=== PATIENT | female | born 1935 | race Caucasian/White ===

== ENCOUNTER 2017-11-23 10:37 | Inpatient (IN) | payer OTHER, BC ==
[2017-11-23] MEDS ORDERED: NA CHLORIDE 0.9% 1,000 ML ONE ×2 (11:48→16:27)
[2017-11-23] MEDS ORDERED: ACETAMINOPHEN 160 MG/5 ML UCUP ONE (11:48)
[2017-11-23] MEDS ORDERED: CEFEPIME 1 GM/100 ML BAG IV ONE (11:48)
[2017-11-23] MEDS ORDERED: ONDANSETRON 4 MG/2 ML VIAL ONE (11:51)
[2017-11-23] MEDS ORDERED: FENTANYL CITR 100 MCG/2 ML ONE (11:51)
[2017-11-23] MEDS ORDERED: VANCOMYCIN/NS 1 gm 1 GM/250 ML BAG IV ONE (12:00)
--- NOTE | 2017-11-23 12:40 | RAD REPORT ---
EXAM DESCRIPTION: RAD - Chest Single View - 11/23/2017 12:21 pm CLINICAL HISTORY: Abdominal pain, shortness of breath COMPARISON: September 01 TECHNIQUE: AP portable chest image was obtained in supine positioning at 1205 hours . FINDINGS: Interstitial edema or infiltrate changes are present superimposed on chronic interstitial lung pattern. Dense opacification in the mid and lower right lung field is the known loculated pleura l fluid and pleural calcification in the posterior right chest. Heart size is similar to prior study. Vasculature is mildly prominent. Mild CHF/ volume overload is suspected. This is accentuated due to supine positioning. Pacemaker remains in place. No pneumothorax or large pleural effusion. Right cost ophrenic angle blunting is probably part of the pleural scarring process rather than any significant effusion. No gross bony abnormality seen. No acute aortic findings suspected. IMPRESSION: Suspected mild CHF/volume overload accentuated by supine positioning. Chronic pleural calcifications of the lower right lung field noted.
[2017-11-23 12:56] LABS: Absolute Lymphocytes (CBC) 1.6 K/uL (0.7-4.9); Absolute Neutrophil 14.4 K/uL (1.8-8.0); Basophils % 0.3 % (0-1.3); Eosinophils % 0.2 % (0-4.4); Hematocrit 42.8 % (36.0-45.0); Lymphocytes % 9.1 % (15.3-44.8); MCH 27.5 pg (27.0-35.0); MCV 89.6 fL (80-100); MPV 8.4 fL (7.6-11.3); RBC Red Blood Cell Count 4.77 M/uL (3.86-4.86)
[2017-11-23 12:59] LABS: Protime INR 1.14
[2017-11-23 13:12] LABS: Bicarbonate 32 mEq/L (21-31); Glucose Level 141 mg/dL (65-120); Potassium 4.1 mEq/L (3.6-5.0); Sodium Level 135 mEq/L (135-145)
[2017-11-23 13:14] LABS: CKMB Creatine Kinase MB 1.5 ng/ml (0.3-4.0)
[2017-11-23 13:18] LABS: ALT/SGPT 14 IU/L (10-60); AST/SGOT 20 IU/L (10-42); Albumin 3.9 g/dL (3.2-5.5); Alkaline Phosphatase 61 IU/L (42-121); BUN Blood Urea Nitrogen 31 mg/dL (6-20); Bilirubin Direct 0.2 mg/dL (0-0.2); Bilirubin Total 0.8 mg/dL (0.3-1.2); Creatine Phosphokinase 28 IU/L (22-269); Protein, Total 7.8 g/dL (6.0-8.3)
--- NOTE | 2017-11-23 13:31 | ER ---
Nurse's Notes [facility] Name: Pao Evans Age: 82 yrs Sex: Female : 1935 Arrival Date: 11/23/2017 Time: 10:48 Bed 3 Private MD: Diagnosis: Fever, unspecified;Abdominal tenderness;Cystitis;Elevated white blood cell count;Vomiting;Pneumonia due to other specified bacteria-right lower posterior lobe;Hypotension Presentation: 11/23 10:48 Presenting complaint: EMS states: vomiting since today reported by daughter. EMS aa5 reports pt vomited once upon scene arrival. EMS also reports daughter reported drainage to PEG tube and reported pt is currently being treated for UTI. Yordan noted. 10:48 Transition of care: patient was not received from another setting of care. Onset of aa5 symptoms was November 23, 2017. Care prior to arrival: Medication(s) given: Phenergan, 12.5 mg. 10:48 Method Of Arrival: EMS: [facility] aa5 10:48 Acuity: GERARDO 3 aa5 Historical: - Allergies: 10:50 Codeine; aa5 - PMHx: 10:50 CHF; COPD; CVA; L side deficits; DVT; Hypertension; Non-Hodgkins Lymphoma; Pacemaker; aa5 skin cancer; THYROID CANCER; - PSHx: 10:59 pacemaker; aa5 11:00 back; thyroid; rb1 - Immunization history:: Adult Immunizations unknown. - Social history:: Smoking status: unknown. Screenin:00 Abuse screen: Denies threats or abuse. Nutritional screening: No deficits noted. rb1 Nutritional screening: On Peg tube. Tuberculosis screening: No symptoms or risk factors identified. 15:00 Fall Risk None identified. ch Assessment: 11:00 Derm: Skin is pink, warm \T\ dry. rb1 11:00 General: Appears in no apparent distress. comfortable, Behavior is calm, cooperative. rb1 Pain: Complains of pain in abdomen. Neuro: Level of Consciousness is awake, alert, obeys commands, Oriented to person, place, time, situation. Cardiovascular: Capillary refill < 3 seconds is brisk in bilateral fingers. Respiratory: Airway is patent Respiratory effort is even, unlabored, Respiratory pattern is regular, symmetrical, O2 on 3 L. GI: PEG tube in place, clamped. Site with drainage. Parent/caregiver reports the patient having constipation. : suprapubic catheter in place to gravity drainage. 11:00 : Parent/caregiver report the patient having pt. is currently being treated for a rb1 UTI, Macrobid BID. 13:54 General: Appears in no apparent distress. comfortable. Neuro: Level of Consciousness is ch awake, alert, obeys commands, Oriented to person, place, time. Respiratory: Airway is patent Respiratory effort is even, unlabored, Respiratory pattern is regular, symmetrical, pt has slightly gasping breaths intermittantly Breath sounds are coarse bilaterally. Breath sounds are diminished bilaterally. GI: Abdomen is round non-distended, PEG tube in place, clamped. Site with drainage. there is green drainage from site around peg tube. : No signs and/or symptoms were reported regarding the genitourinary system. Derm: Skin is pink, warm \T\ dry. 14:09 Reassessment: Patient appears in no apparent distress at this time. Patient and/or ch family updated on plan of care and expected duration. Pain level reassessed. Patient is alert, oriented x 3, equal unlabored respirations, skin warm/dry/pink. 14:30 Reassessment: Patient appears in no apparent distress at this time. erp notified of pt ch bp. erp in room to reassess pt. lab and BB and Rita unable to draw second blood culture. ERP evaluates pt for access. pt given 500mL Bolus per erp instructions. 15:00 Reassessment: pt moved to room 3, report given to Gilda Fernandez At bedside. erp assisted ch with central line. 15:18 Reassessment: Patient and/or family updated on plan of care and expected duration. Pain ch level reassessed. pt bp 82/41. erp in room performing central line now. 15:45 Reassessment: Hospitalist Dr. Ornelas at bedside. Reassessment: BP 85/37, HR 77, DR. nathaniel Sy notified, Levophed started at 10 mcg/min, NS 250 ml bolus infusing as ordered. Vital Signs: 10:49 BP 117 / 69; Pulse 110; Resp 20 S; Temp 100.1(A); Pulse Ox 100% on 2 lpm NC; aa5 12:59 BP 115 / 48; Pulse 105; Resp 26; Pulse Ox 98% 2 lpm ; ch 13:54 BP 91 / 43; Pulse 94; Resp 16; Temp 98.0; Pulse Ox 99% on R/A; Pain 0/10; ch 14:30 BP 71 / 43; Pulse 84; Resp 14; Temp 98.2(O); Pulse Ox 99% on 3 lpm NC; Pain 0/10; ch 15:00 BP 73 / 48; Pulse 90; Resp 18; ch 15:19 BP 81 / 56; Pulse 88; Resp 16; Temp 98.3; Pulse Ox 99% on 2 lpm NC; ch 15:45 BP 85 / 37; Pulse 74; Resp 15; Pulse Ox 100% on 2 lpm NC; hb Vitals: 15:00 Cardiac Rhythm Assessment Paced. ED Course: 10:48 Patient arrived in ED. ch 10:48 Arm band placed on Patient placed in an exam room, on a stretcher. aa5 10:54 Triage completed. aa5 11:00 Patient has correct armband on for positive identification. Bed in low position. Call rb1 light in reach. Side rails up X2. Pulse ox on. NIBP on. Warm blanket given. 11:16 Sergio Sy MD is Attending Physician. [facility] 11:44 Nhi Whitley, SHER is Primary Nurse. 12:10 X-ray completed. Portable x-ray completed in exam room. Patient tolerated procedure ml well. 12:15 XRAY Chest (1 view) In Process Unspecified. EDMS 12:25 Missed attempt(s): 24 gauge in right wrist. Bleeding controlled, band aid applied, ch catheter tip intact. 12:30 Inserted saline lock: 22 gauge in left forearm, using aseptic technique. Blood ch collected. 13:28 Margarette Ornelas MD is Hospitalizing Provider. [facility] 13:44 CT completed. Patient tolerated procedure well. Patient moved to CT via stretcher. sj Patient moved back from CT. 15:00 No provider procedures requiring assistance completed. 15:00 Assisted provider with central line placement. Set up central line tray. Triple lumen aa5 line placed in right femoral. Line placed by Sergio Sy MD Placement verified by blood return, Dressed with Tegaderm, Blood was collected. Patient tolerated well. Before procedure, did Practitioner(s) obtain informed consent? Yes. Patient \T\ family education about procedure, CLABSI prevention and S/S of infection? Yes. Administered Medications: 12:30 Drug: NS 0.9% 1000 ml Route: IV; Rate: 125 ml/hr; Site: left forearm; ch 12:45 Drug: Zofran 4 mg Route: IVP; Site: left forearm; ch 13:52 Follow up: Response: No adverse reaction ch 13:00 Drug: Tylenol 650 mg Route: PO; ch 13:00 Drug: fentaNYL (PF) 50 mcg Route: IVP; Site: left forearm; ch 13:53 Follow up: Response: No adverse reaction; Marked relief of symptoms ch 13:30 Drug: Cefepime 1 grams Route: IVPB; Rate: 200 ml/hr; Infused Over: 30 mins; Site: left ch forearm; 14:30 Drug: NS 0.9% 500 ml Route: IV; Rate: bolus; Site: left forearm; ch 15:25 Follow up: IV Status: Completed infusion; IV Intake: 500ml ch 15:22 Drug: NS 0.9% 500 ml Route: IV; Rate: bolus; Site: left forearm; ch 15:33 Drug: vancoMYCIN 1 grams Route: IVPB; Infused Over: 2 hrs; Site: Other; aa5 15:45 Drug: Levophed (4 mg/250 mL D5W 4 mcg/min Route: IV; Rate: calculated rate; Site: Other;hb 15:57 Drug: NS 0.9% 250 ml Route: IV; Rate: bolus; Site: Other; hb Intake: 15:25 IV: 500ml; Total: 500ml. Outcome: 13:30 Decision to Hospitalize by Provider. renny 17:04 Patient left the ED. sv Signatures: Dispatcher [employer] EDMS Nhi Whitley RN Lizeth Huff ch, RN RN sv Anderson, Corey, MD MD cha Jones, Susan sj Lopez, Melissa ml Calderon, Audri, RN RN aa5 Hilda Booth RN RN rb1 Gilda Gill RN RN hb Corrections: (The following items were deleted from the chart) 11:23 General: Appears in no apparent distress. comfortable, Behavior is calm, rb1 cooperative, rb1 11:23 Pain: Complains of pain in abdomen rb1 rb1 11:23 Neuro: Level of Consciousness is awake, alert, obeys commands, Oriented to rb1 person, place, time, situation, rb1 11:23 Cardiovascular: Capillary refill < 3 seconds is brisk in bilateral fingers rb1 rb1 11:23 Respiratory: Airway is patent Respiratory effort is even, unlabored, Respiratory rb1 pattern is regular, symmetrical, O2 on 3 L rb1 11:23 GI: PEG tube in place, clamped. Site with drainage. Parent/caregiver reports the rb1 patient having constipation, rb1 11:23 : suprapubic catheter in place to gravity drainage rb1 rb1 15: 14:30 Reassessment: Patient appears in no apparent distress at this time. erp notified ch of pt bp. erp in room to reassess pt. lab and BB and Rita unable to draw second blood culture. ERP evaluates pt for access. 20:35 15:32 Jami Mtz, RN is Primary Nurse. aa5 aa5
--- NOTE | 2017-11-23 13:31 | EDPHYS ---
Physician Documentation [facility] Name: Pao Evans Age: 82 yrs Sex: Female : 1935 Arrival Date: 11/23/2017 Time: 10:48 Bed 3 Private MD: ED Physician Sergio Sy HPI: 11/23 11:41 This 82 yrs old Female presents to ER via EMS with complaints of renny Nausea/Vomiting. 11:41 The patient presents to the emergency department with nausea, vomiting, abdominal pain, renny of the right upper quadrant, left upper quadrant, right lower quadrant and left lower quadrant. Onset: The symptoms/episode began/occurred 2 day(s) ago. Possible causes: unknown. The symptoms are aggravated by nothing. Associated signs and symptoms: The patient has no apparent associated signs or symptoms. Severity of symptoms: At their worst the symptoms were moderate in the emergency department the symptoms are unchanged. The patient has not experienced similar symptoms in the past. Historical: - Allergies: 10:50 Codeine; aa5 - PMHx: 10:50 CHF; COPD; CVA; L side deficits; DVT; Hypertension; Non-Hodgkins Lymphoma; Pacemaker; aa5 skin cancer; THYROID CANCER; - PSHx: 10:59 pacemaker; aa5 11:00 back; thyroid; rb1 - Immunization history:: Adult Immunizations unknown. - Social history:: Smoking status: unknown. ROS: 11:42 Eyes: Negative for injury, pain, redness, and discharge, ENT: Negative for injury, renny pain, and discharge, Neck: Negative for injury, pain, and swelling, Cardiovascular: Negative for chest pain, palpitations, and edema, Respiratory: Negative for shortness of breath, cough, wheezing, and pleuritic chest pain, Back: Negative for injury and pain, : Negative for injury, bleeding, discharge, and swelling, MS/Extremity: Negative for injury and deformity, Skin: Negative for injury, rash, and discoloration, Neuro: Negative for headache, weakness, numbness, tingling, and seizure, Psych: Negative for depression, anxiety, suicide ideation, homicidal ideation, and hallucinations, Allergy/Immunology: Negative for hives, rash, and allergies, Endocrine: Negative for neck swelling, polydipsia, polyuria, polyphagia, and marked weight changes. 11:42 Constitutional: Positive for body aches, fever, malaise. 11:42 Abdomen/GI: Positive for abdominal pain, nausea and vomiting, of the right upper quadrant, left upper quadrant, right lower quadrant and left lower quadrant. Exam: 11:42 Head/Face: Normocephalic, atraumatic. Eyes: Pupils equal round and reactive to light, renny extra-ocular motions intact. Lids and lashes normal. Conjunctiva and sclera are non-icteric and not injected. Cornea within normal limits. Periorbital areas with no swelling, redness, or edema. ENT: Nares patent. No nasal discharge, no septal abnormalities noted. Tympanic membranes are normal and external auditory canals are clear. Oropharynx with no redness, swelling, or masses, exudates, or evidence of obstruction, uvula midline. Mucous membranes moist. Neck: Trachea midline, no thyromegaly or masses palpated, and no cervical lymphadenopathy. Supple, full range of motion without nuchal rigidity, or vertebral point tenderness. No Meningismus. Chest/axilla: Normal chest wall appearance and motion. Nontender with no deformity. No lesions are appreciated. Respiratory: Lungs have equal breath sounds bilaterally, clear to auscultation and percussion. No rales, rhonchi or wheezes noted. No increased work of breathing, no retractions or nasal flaring. Back: No spinal tenderness. No costovertebral tenderness. Full range of motion. Female : Normal external genitalia. Skin: Warm, dry with normal turgor. Normal color with no rashes, no lesions, and no evidence of cellulitis. MS/ Extremity: Pulses equal, no cyanosis. Neurovascular intact. Full, normal range of motion. Neuro: Awake and alert, GCS 15, oriented to person, place, time, and situation. Cranial nerves II-XII grossly intact. Motor strength 5/5 in all extremities. Sensory grossly intact. Cerebellar exam normal. Normal gait. Psych: Awake, alert, with orientation to person, place and time. Behavior, mood, and affect are within normal limits. 11:42 Constitutional: The patient appears febrile. 11:42 Cardiovascular: Rate: tachycardic, Rhythm: regular, Pulses: Pulses are 4+ in bilateral radial, brachial, femoral, popliteal, posterior tibial and and dorsalis pedis arteries.. Heart sounds: normal, Edema: is not appreciated. 11:42 Respiratory: 11:42 Abdomen/GI: Inspection: abdomen appears normal, Bowel sounds: normal, Palpation: mild abdominal tenderness, in all quadrants, Liver: no appreciated palpable abnormalities, Hernia: not appreciated. Vital Signs: 10:49 BP 117 / 69; Pulse 110; Resp 20 S; Temp 100.1(A); Pulse Ox 100% on 2 lpm NC; aa5 12:59 BP 115 / 48; Pulse 105; Resp 26; Pulse Ox 98% 2 lpm ; ch 13:54 BP 91 / 43; Pulse 94; Resp 16; Temp 98.0; Pulse Ox 99% on R/A; Pain 0/10; ch 14:30 BP 71 / 43; Pulse 84; Resp 14; Temp 98.2(O); Pulse Ox 99% on 3 lpm NC; Pain 0/10; ch 15:00 BP 73 / 48; Pulse 90; Resp 18; ch 15:19 BP 81 / 56; Pulse 88; Resp 16; Temp 98.3; Pulse Ox 99% on 2 lpm NC; ch 15:45 BP 85 / 37; Pulse 74; Resp 15; Pulse Ox 100% on 2 lpm NC; hb Procedures: 15:15 Central Line: the site was prepped with Betadine, in sterile fashion, a triple lumen renny catheter was inserted, in the right in 1 attempts. placement was verified, by blood return, the site was dressed with using sterile technique, the patient tolerated the procedure, well. MDM: 11:16 [facility]. [facility] 11:44 Data reviewed: vital signs, nurses notes, lab test result(s), EKG, radiologic studies, [facility] scan, plain films. 11/23 11:37 Order name: Basic Metabolic Panel; Complete Time: 13:25 [facility] 11/23 11:37 Order name: BNP; Complete Time: 13:28 [facility] 11/23 11:37 Order name: CBC with Diff; Complete Time: 13:25 [facility] 11/23 11:37 Order name: Ckmb; Complete Time: 13:25 [facility] 11/23 11:37 Order name: CPK; Complete Time: 13:25 [facility] 11/23 11:37 Order name: LFT's; Complete Time: 13:25 [facility] 11/23 11:37 Order name: Magnesium; Complete Time: 13:25 [facility] 11/23 11:37 Order name: PT-INR; Complete Time: 13:25 [facility] 11/23 11:37 Order name: Ptt, Activated; Complete Time: 13:25 [facility] 11/23 11:37 Order name: Troponin (emerg Dept Use Only); Complete Time: 14:02 [facility] 11/23 11:37 Order name: Blood Culture Adult (2) [facility] 11/23 11:37 Order name: Urine Culture [facility] 11/23 11:37 Order name: Lactate; Complete Time: 13:25 [facility] 11/23 11:37 Order name: Procalcitonin; Complete Time: 13:25 [facility] 11/23 11:37 Order name: XRAY Chest (1 view); Complete Time: 13:25 [facility] 11/23 11:37 Order name: EKG; Complete Time: 11:38 [facility] 11/23 11:41 Order name: CT Abd/Pelvis - W/Contrast [facility] 11/23 13:31 Order name: Urine Dipstick--Ancillary (enter results); Complete Time: 14: 11/23 14:02 Order name: CT; Complete Time: 14:02 EDME 11/23 11:37 Order name: Cardiac monitoring; Complete Time: 15:23 [facility] 11/23 11:37 Order name: EKG - Nurse/Tech; Complete Time: 15:23 [facility] 11/23 11:37 Order name: IV Saline Lock; Complete Time: 15:22 [facility] 11/23 11:37 Order name: Labs collected and sent; Complete Time: 15:22 [facility] 11/23 11:37 Order name: O2 Per Protocol; Complete Time: 15:22 [facility] 11/23 11:37 Order name: O2 Sat Monitoring; Complete Time: 15:22 [facility] 11/23 11:37 Order name: Urine Dipstick-Ancillary (obtain specimen); Complete Time: 15:23 [facility] 11/23 13:27 Order name: Farr; Complete Time: 15:58 [facility] 11/23 15:23 Order name: Central Line Kit; Complete Time: 15:24 ch Administered Medications: 12:30 Drug: NS 0.9% 1000 ml Route: IV; Rate: 125 ml/hr; Site: left forearm; ch 12:45 Drug: Zofran 4 mg Route: IVP; Site: left forearm; ch 13:52 Follow up: Response: No adverse reaction ch 13:00 Drug: Tylenol 650 mg Route: PO; ch 13:00 Drug: fentaNYL (PF) 50 mcg Route: IVP; Site: left forearm; ch 13:53 Follow up: Response: No adverse reaction; Marked relief of symptoms ch 13:30 Drug: Cefepime 1 grams Route: IVPB; Rate: 200 ml/hr; Infused Over: 30 mins; Site: left ch forearm; 14:30 Drug: NS 0.9% 500 ml Route: IV; Rate: bolus; Site: left forearm; ch 15:25 Follow up: IV Status: Completed infusion; IV Intake: 500ml ch 15:22 Drug: NS 0.9% 500 ml Route: IV; Rate: bolus; Site: left forearm; ch 15:33 Drug: vancoMYCIN 1 grams Route: IVPB; Infused Over: 2 hrs; Site: Other; aa5 15:45 Drug: Levophed (4 mg/250 mL D5W 4 mcg/min Route: IV; Rate: calculated rate; Site: Other;hb 15:57 Drug: NS 0.9% 250 ml Route: IV; Rate: bolus; Site: Other; hb Disposition: 11/23/17 13:30 Hospitalization ordered by Margarette Ornelas for Inpatient Admission. Preliminary diagnosis are Fever, unspecified, Abdominal tenderness, Cystitis, Elevated white blood cell count, Vomiting, Pneumonia due to other specified bacteria - right lower posterior lobe, Hypotension. - Bed requested for Intensive Care Unit. - Status is Inpatient Admission. sv - Condition is Fair. - Problem is new. - Symptoms have improved. UTI on Admission? Yes Signatures: Dispatcher [employer] EDMS Nhi Whitley RN RN ch Verde, Stephanie, RN RN sv Anderson, Corey, MD MD cha Calderon, Audri, RN RN [facility] Hilda Booth, SHER OLIVAREZ [facility] Gilda Gill RN RN Arabella Rich RN RN df Corrections: (The following items were deleted from the chart) 14:07 13:30 Hospitalization Ordered by Margarette Ornelas MD for Inpatient Admission. Preliminary [facility] diagnosis is Fever, unspecified; Abdominal tenderness; Cystitis; Elevated white blood cell count; Vomiting. Bed requested for Telemetry/MedSurg (Inpatient). Status is Inpatient Admission. Condition is Fair. Problem is new. Symptoms have improved. UTI on Admission? Yes. renny 15:16 14:07 11/23/2017 13:30 Hospitalization Ordered by Margarette Ornelas MD for Inpatient renny Admission. Preliminary diagnosis is Fever, unspecified; Abdominal tenderness; Cystitis; Elevated white blood cell count; Vomiting; Pneumonia due to other specified bacteria - right lower posterior lobe. Bed requested for Telemetry/MedSurg (Inpatient). Status is Inpatient Admission. Condition is Fair. Problem is new. Symptoms have improved. UTI on Admission? Yes. [facility] 15:16 15:16 11/23/2017 13:30 Hospitalization Ordered by Margarette Ornelas MD for Inpatient renny Admission. Preliminary diagnosis is Fever, unspecified; Abdominal tenderness; Cystitis; Elevated white blood cell count; Vomiting; Pneumonia due to other specified bacteria - right lower posterior lobe; Hypotension. Bed requested for Telemetry/MedSurg (Inpatient). Status is Inpatient Admission. Condition is Fair. Problem is new. Symptoms have improved. UTI on Admission? Yes. [facility] 16:00 15:16 11/23/2017 13:30 Hospitalization Ordered by Margarette Ornelas MD for Inpatient df Admission. Preliminary diagnosis is Fever, unspecified; Abdominal tenderness; Cystitis; Elevated white blood cell count; Vomiting; Pneumonia due to other specified bacteria - right lower posterior lobe; Hypotension. Bed requested for Intensive Care Unit. Status is Inpatient Admission. Condition is Fair. Problem is new. Symptoms have improved. UTI on Admission? Yes. [facility] 17:04 16:00 11/23/2017 13:30 Hospitalization Ordered by Margarette Ornelas MD for Inpatient sv Admission. Preliminary diagnosis is Fever, unspecified; Abdominal tenderness; Cystitis; Elevated white blood cell count; Vomiting; Pneumonia due to other specified bacteria - right lower posterior lobe; Hypotension. Bed requested for Intensive Care Unit. Status is Inpatient Admission. Condition is Fair. Problem is new. Symptoms have improved. UTI on Admission? Yes. df
[2017-11-23 13:47] LABS: Urine Blood 2+ (NEG); Urine Glucose NEGATIVE (NEG); Urine Protein TRACE (NEG); Urine Specific Gravity 1.015 (1.005-1.030); Urine pH 7.5 (5.0-7.0)
--- NOTE | 2017-11-23 14:01 | RAD REPORT ---
EXAM DESCRIPTION: CTAbdomen Pelvis W Contrast - 11/23/2017 1:49 pm CLINICAL HISTORY: Abdominal pain. Vomiting COMPARISON: 09/03/2017, 11/13/2015 TECHNIQUE: Biphasic CT imaging of the abdomen and pelvis was performed with 100 ml non-ionic IV cont rast. All CT scans are performed using dose optimization technique as appropriate and may include automated exposure control or mA/KV adjustment according to patient size. FINDINGS: Calcification is seen posterior right pleura, unchanged. Airspace opacity is present in th e right lung base posteriorly, more prominent than on comparative studies, probably representing pneu monia/aspiration. The liver demonstrates no focal mass or biliary dilatation. Spleen is mildly prominent in size. The p ancreas, adrenal glands and kidneys are within normal limits. Gastrostomy tube bulbous within the sto mach. No bowel obstruction, free air, free fluid or abscess. Atherosclerosis of the aorta is present. Sigmo id diverticulosis coli is present without diverticulitis. Suprapubic catheter is in place. Moderate s tool is present in the rectum. No evidence of significant lymphadenopathy. Postsurgical changes are present in the lumbar spine with laminectomy defects identified. IMPRESSION: Moderate airspace opacity in the right lower lobe posteriorly likely represents pneumoni a/ aspiration. No acute intra-abdominal or pelvic abnormality seen. Mild sigmoid diverticulosis is present without diverticulitis.
[2017-11-23] MEDS ORDERED: ONDANSETRON 4 MG/2 ML VIAL IV PRN (14:09)
[2017-11-23] MEDS ORDERED: ENOXAPARIN 40 MG/0.4 ML SQ SCH (15:00)
--- NOTE | 2017-11-23 15:26 | EKG ---
Test Date: 2017-11-23 Test Time: 12:11:55 Aids Counselor: DAVID MEASUREMENT RESULTS: Intervals: Rate: 109 DC: 174 QRSD: 170 QT: 386 QTc: 519 Regina: P: DC: 174 QRS: -80 T: 82 INTERPRETIVE STATEMENTS: Atrial-sensed ventricular-paced rhythm Abnormal ECG Compared to ECG 09/01/2017 06:26:45 Sinus rhythm no longer present Electronically Signed On 11-23-17 15:25:38 CDT by Arnulfo Buchanan
[2017-11-23] MEDS ORDERED: NOREPINEPHRINE 4mg/D5W 250mL 4 MG/250 ML BAG IV ONE (15:53)
[2017-11-23] MEDS: INSULIN -REGULAR HUMAN 50 UNIT/0.5 ML ML SQ SCH ×2 (16:30→21:00)
[2017-11-23] MEDS ORDERED: GLUCAGON 1 MG/VIAL IM PRN (16:36)
[2017-11-23] MEDS ORDERED: D50W 25 GM/50 ML SYRINGE IV PRN (16:36)
[2017-11-23] MEDS ORDERED: SODIUM CHLORIDE 0.9% 10ML INJ IV PRN (18:34)
[2017-11-23] MEDS: NA CHLORIDE 0.9% 1,000 ML IV SCH (19:00)
[2017-11-23] MEDS: IPRATROPIUM BROM 0.5MG/2.5ML NEB SCH (19:03)
[2017-11-23] MEDS: ALBUTEROL 2.5 MG/3 ML NEB SOL NEB SCH (19:03)
[2017-11-23] MEDS ORDERED: CEFEPIME/SWI 2gm 2 GM/20 ML SYR IV SCH (21:00)
[2017-11-23] MEDS: ATORVASTATIN 10 MG TAB FT SCH (21:00)
[2017-11-23] MEDS ORDERED: HOME MED 1 EA UNK (Simvastatin [Simvastatin] 20 MG) FT SCH (21:00)
[2017-11-23] MEDS ORDERED: CEFEPIME 2 GM VIAL IV SCH (21:00)
[2017-11-23] MEDS: MEMANTINE HCL 10 MG TABLET FT SCH (21:00)
[2017-11-24] MEDS ORDERED: VANCOMYCIN/NS 1 gm 1 GM/250 ML BAG IVPB SCH
[2017-11-24] MEDS: KETOROLAC 30 MG/ML INJ IV PRN ×2 (01:00→07:45)
[2017-11-24] MEDS: IPRATROPIUM BROM 0.5MG/2.5ML NEB SCH ×2 (01:17→07:57)
[2017-11-24] MEDS: ALBUTEROL 2.5 MG/3 ML NEB SOL NEB SCH ×2 (01:18→07:57)
--- NOTE | 2017-11-24 03:29 | HP ---
Date of Admission: 11/23/2017 Code Status: Full. Chief Complaint: Nausea, vomiting, generalized weakness. History Of Present Illness: Patient is an 82-year-old female with past medical history of diabetes, CVA with left-sided weakness, thyroid cancer, hypothyroidism, non-Hodgkin's lymphoma in remission, hi story of melanoma, history of endocarditis, history of DVT, shingles, giant cell arteritis, Parkinson , hypertension, heart failure, pacemaker, PEG tube, who has recently been in and out of the hospital multiple times, most recent stay was at [facility] for 2 months. Patient had her PEG tube re placed twice and also developed pneumonia, was in the ICU. Patient was in her usual state of health until day of admission when the patient had sudden onset of generalized weakness, nausea, vomiting, h ad somewhat constipated, and not had a bowel movement in several days, almost 1 week. Daughter felt that the patient was not her usual self. Patient's symptoms are constant, moderate, progressively wo rsening. She was brought into the ER for further evaluation. Her workup revealed a white count of 1 7,000. Her kidney function was normal. Lactate and procalcitonin were negative. Troponin was also negative. Her UA was positive for UTI. Her imaging studies including CT scan of the abdomen and pel vis did show air space opacity in the right lower lobe posteriorly representing pneumonia aspiration. No pelvic or intraabdominal abnormality was seen. Patient was referred for admission. When seen i n the ER, she was asleep, difficult to arouse, not following commands. Her blood pressure had droppe d to the 90s/30s, however, improved with bolus. Past Medical History: Diabetes mellitus type 2; CVA with left-sided residual weakness; history of th yroid cancer, status post surgery, hypothyroidism; non-Hodgkin lymphoma in remission; history of mayra noma; history of endocarditis; history of DVT in the left arm; history of shingles; giant cell arteri tis; Parkinson disease; hypertension; hyperlipidemia; congestive heart failure, status post pacemaker . Surgical History: Pacemaker placement, thyroidectomy, back surgery, PEG tube placement with multiple revisions and replacement of suprapubic catheter. Allergies: TO CODEINE. Medications: List reviewed. Social History: Patient is , lives at home with has home health. Daughter is a primary careg iver. She has 3 children. She is a retired teacher. No alcohol use, illicit drug use, or tobacco u se. Family History: Mother had heart disease and hypertension. Father also had heart disease and hypert ension. Sister had cancer. Review of Systems: Unable to be obtained due to patient's medical condition. Physical Examination: Vital signs: Blood pressure 117/69, pulse 110, respirations 20, temperature 100.1, pulse ox 100% on 2 L via nasal cannula. General: Asleep, difficult to arouse with sternal rub, ill-appearing elderly female, frail. HEENT: Normocephalic, atraumatic. PERRLA. EOMI. Dry mucous membranes. Oropharynx is clear. Poor dentition. Conjunctiva anicteric. Neck: Supple. No JVD. Trachea midline. CV: S1 and S2. Peripheral pulses are weak bilaterally. Gastrointestinal: Abdomen is soft, nontender, nondistended. Positive bowel sounds. No guarding or rigidity. Extremities: No clubbing, cyanosis, or edema. No calf tenderness. Neuro: Left-sided residual weakness. Patient is able to follow commands; however, cranial nerves ar e grossly intact. Skin: No rashes. Normal skin turgor. Patient does have PEG tube placed with some surrounding excor iation on the abdominal wall and drainage along the PEG tube site. Patient also has super suprapubic catheter placed. Psych: Deferred. Laboratory Data: UA; blood is 2+, nitrite negative, 3+ leukocyte, negative glucose, trace protein. Sodium 135, potassium 4.1, chloride 91, CO2 of 32, BUN 31, creatinine 0.57, glucose 141, calcium 10.9 , lactic acid 14.7, magnesium 2. Troponin less than 0.03. BNP 464. Albumin 3.9. Procalcitonin 0.0 8. INR 1.14. WBC 17.1, H and H 13.1 and 42.8, platelets 221, neutrophils 84.4%. Chest x-ray shows suspected mild CHF volume overload accentuated by supine positioning, chronic pleural calcifications in the right lower lung field noted. CT scan abdomen and pelvis shows moderate airspace opacity in t he right lower lobe posteriorly likely represents pneumonia aspiration. No acute intraabdominal or p elvic abnormality seen. Mild sigmoid diverticulosis is present without diverticulitis. Assessment And Plan: An 82-year-old female with: 1.Early sepsis. Patient has hypotension. White count [id number]. Source of infection is pneumonia. La ctate and Procalamine negative, we will repeat. Patient is tachycardic. We will continue with IV fl uid resuscitation, broad-spectrum IV antibiotics due to recent hospital stay at [facility]. 2.Right lower lobe pneumonia. We will continue IV antibiotics. Obtain blood and sputum cultures. Consult Pulmonology. 3.Hypotension, likely secondary to above. We will continue with IV fluid resuscitation. Start on p ressors to keep MAP above 65 if needed. 4.Intractable nausea and vomiting, on IV antiemetics. 5.Diabetes mellitus type 2. Start on sliding scale insulin. 6.History of cerebrovascular accident with left-sided residual weakness. 7.Weakness. 8.History of thyroid cancers, currently hypothyroidism, postsurgical. 9.Non-Hodgkin's lymphoma, in remission. 10.History of melanoma. 11.History of endocarditis. 12.History of deep venous thrombosis in the left arm. 13.Parkinson disease. 14.Mixed hyperlipidemia. 15.Status post pacemaker. 16.Congestive heart failure, [id number]. Ejection fraction 68% from last known echo. Diastol ic dysfunction. BNP mildly elevated. No peripheral edema. Chest x-ray does show some volume overlo ad pattern. At this point, patient needs IV fluid resuscitation. 17.Gastrointestinal and deep venous thrombosis prophylaxis addressed. Plan: 1.Admit the patient to ICU, place as inpatient. Overall prognosis is poor. 2.PEG tube site infection. 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 Medical [id number] is the julieta carey. JAUN Voice ID: [id number]
[2017-11-24] MEDS: LIOTHYRONINE SOD 5 MCG TAB FT SCH (05:11)
[2017-11-24] MEDS: LEVOTHYROXINE SOD 0.125 MG TAB FT SCH (05:11)
[2017-11-24 06:40] LABS: Absolute Lymphocytes (CBC) 2.5 K/uL (0.7-4.9); Absolute Monocytes 1.6 K/uL (0.1-1.3); Absolute Neutrophil 10.9 K/uL (1.8-8.0); Basophils % 0.2 % (0-1.3); Eosinophils % 0.3 % (0-4.4); Hematocrit 32.1 % (36.0-45.0); Lymphocytes % 16.8 % (15.3-44.8); MCH 27.5 pg (27.0-35.0); MCV 89.4 fL (80-100); MPV 8.8 fL (7.6-11.3); Monocytes % 10.3 % (3.3-12.3); RBC Red Blood Cell Count 3.59 M/uL (3.86-4.86)
[2017-11-24 07:04] LABS: ALT/SGPT 11 IU/L (10-60); AST/SGOT 16 IU/L (10-42); Albumin 2.9 g/dL (3.2-5.5); Alkaline Phosphatase 43 IU/L (42-121); BUN Blood Urea Nitrogen 28 mg/dL (6-20); Bicarbonate 31 mEq/L (21-31); Bilirubin Total 0.6 mg/dL (0.3-1.2); Glucose Level 115 mg/dL (65-120); Potassium 3.2 mEq/L (3.6-5.0); Protein, Total 6.6 g/dL (6.0-8.3); Sodium Level 139 mEq/L (135-145)
[2017-11-24] MEDS: INSULIN -REGULAR HUMAN 50 UNIT/0.5 ML ML SQ SCH ×4 (07:30→20:29)
[2017-11-24] MEDS ORDERED: ALBUTEROL 2.5 MG/3 ML NEB SOL NEB PRN (08:16)
[2017-11-24] MEDS ORDERED: IPRATROPIUM BROM 0.5MG/2.5ML NEB PRN (08:17)
[2017-11-24] MEDS: NA CHLORIDE 0.9% 1,000 ML IV SCH (08:20)
--- NOTE | 2017-11-24 08:24 | P.CNS ---
Date of Consult: 11/24/17 Reason for Consult: Pneumonia Chief Complaint: Nausea vomiting abdominal pain History of Present Illness: Patient is 82 years of age debilitated from a stroke she has left-sided hemiparesis does not communicate very well claims that she is in [facility] admitted with nausea vomiting abdominal pain this abdominal discomfort and was found to have a right-sided pneumonia. Patient was found of consolidation on the chest x-ray elevated white count probably aspiration her PEG tube is leaking T Allergies codeine [Codeine] Allergy (Intermediate, Verified 07/28/17 07:02) Hives/Rash Home Medications: Baclofen [Lioresal*] 5 mg FT TID 04/17/14 Memantine HCl [Namenda*] 10 mg FT BID 04/17/14 Gabapentin [Neurontin] 100 mg FT TID 12/18/15 Ondansetron HCl [Zofran] 4 mg FT Q8H PRN 12/18/15 Alprazolam [Xanax*] 0.25 mg FT BID 10/26/16 Hydrocodone 10/APAP 325 [[place] 10/325*] 10 mg FT Q6H PRN 10/26/16 Spironolactone [Aldactone*] 25 mg FT DAILY 10/26/16 Carvedilol 3.125 mg PO BID 07/28/17 Levothyroxine Sodium 125 mcg FT DAILY 07/28/17 Liothyronine Sodium [Cytomel] 5 mcg FT DAILY 07/28/17 Nitrofurantoin Macrocrystal [Macrodantin] 100 mg PO BID 07/28/17 Simvastatin 20 mg FT BEDTIME 07/28/17 Acetazolamide [Diamox*] 250 mg PO Q12H PRN 11/23/17 Calcium Acetate 667 mg PO TID 11/23/17 Ergocalciferol (Vitamin D2) [Vitamin D2] 50,000 unit PO DAILY 11/23/17 Folic Acid 1 mg PO DAILY 11/23/17 Magnesium Oxide [Magnesium] 400 mg PO DAILY 11/23/17 Omeprazole 20 mg PO DAILY 11/23/17 Rivaroxaban [Xarelto*] 10 mg PO DAILY 11/23/17 - Past Medical/Surgical History Diabetic: No -: Diabetes mellitus type 2 -: CVA-Residual left sided weakness -: History of thyroid cancer post surgery Hypothyroidism -: Non Hodgins lymphoma-remission -: History of melanoma -: History of endocarditis -: History of DVT-left arm -: History of shingles 06/25-07/27 -: Giant cell arteritis -: Parkinson's -: HTN/Hyperlipidemia -: Pacemaker/CHF -: Thyroidectomy -: Pacemaker -: Back surgery -: Gastric tube -: Suprapubic catheter Psychosocial/ Personal History: , Children-3, Retired-teacher, 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 - Family History Mother Medical History: Heart disease, Hypertension Father Medical History: Heart disease, Hypertension Sister Medical History: Cancer - Social History Smoking Status: Unknown if ever smoked Alcohol use: No CD- Drugs: No Caffeine use: No Place of Residence: Home Review of Systems is unable to be obtained Physical Examination Temp Pulse Resp BP Pulse Ox 97.8 F 86 15 149/58 H 100 11/24/17 04:00 11/24/17 06:00 11/24/17 06:00 11/24/17 06:00 11/24/17 06:00 General: Alert, Cooperative, Mild distress Neck: Supple Respiratory: Crackles/rales (On the right side) Cardiovascular: No edema, Normal S1 S2 Gastrointestinal: Normal bowel sounds, Soft and benign Musculoskeletal: No clubbing, No contractures Laboratory Data (last 24 hrs) 11/23/17 12:30: PT 13.5 H, INR 1.14, APTT 34.8 11/23/17 12:30: WBC 17.1 H D, Hgb 13.1, Hct 42.8 D, Plt Count 221 D 11/23/17 12:30: B-Natriuretic Peptide 464 H 11/23/17 12:30: Sodium 135, Potassium 4.1, BUN 31 H, Creatinine 0.57, Glucose 141 H, Magnesium 2.0, Total Bilirubin 0.8, AST 20, ALT 14, Alkaline Phosphatase 61 - Problems (1) Aspiration pneumonia Current Visit: Yes Status: Acute Plan: Patient is 82 years of age debilitated from a stroke she has left-sided hemiparesis a PEG tube admitted with abdominal symptoms nausea vomiting abdominal pain found to have a consolidation on the x-ray confirmed by CT scan elevated white count patient needs to be changed to Clari min due to anaerobic coverage continue with vancomycin is cultures pending pro calcitonin level is negative mildly hypokalemic white count is elevated it is declining oxygenation satisfactory patient is full code Qualifiers: Laterality: right
[2017-11-24] MEDS ORDERED: HYDROCODONE/APAP 5/325 MG TAB PO ONE (08:37)
[2017-11-24] MEDS ORDERED: Meropenem 1000 MG/VIAL IV SCH (09:00)
[2017-11-24] MEDS ORDERED: PANTOPRAZOLE 40 MG INJ IVP SCH (09:00)
[2017-11-24] MEDS: Meropenem 1,000 MG in NA CHLORIDE 0.9% 100 ML IV SCH ×2 (09:05→16:42)
[2017-11-24] MEDS: MEMANTINE HCL 10 MG TABLET FT SCH ×2 (09:05→20:30)
[2017-11-24] MEDS: RIVAROXABAN 10 MG TABLET PO SCH (09:05)
--- NOTE | 2017-11-24 10:05 | RAD REPORT ---
EXAM DESCRIPTION: RAD - Chest Single View - 11/24/2017 9:57 am CLINICAL HISTORY: Fever of unknown origin COMPARISON: November 23 TECHNIQUE: AP portable chest image was obtained 0944 hours . FINDINGS: Interstitial lung pattern is not substantially different. The dense calcified pleura and l oculated fluid in the posterior base, seen on remote imaging, has not changed. No focal pneumonia renny nges are identifiable. No failure or volume overload. Heart size normal. No pneumothorax. Minimal rig ht costophrenic angle blunting believed to be pleural scarring and not effusion. No gross bony abnorm ality seen. No acute aortic findings suspected. IMPRESSION: A mild CHF/ volume overload pattern seen on the prior day study is no longer evident. No new lung parenchymal process.
--- NOTE | 2017-11-24 11:08 | ECHO ---
HEIGHT: 5 ft 0 in WEIGHT: 109 lb 6.4 oz DATE OF STUDY: 11/24/[address]: 2-DIMENSIONAL: YES M.MODE: YES DOPPLER: YES COLOR FLOW: YES TDS: YES PORTABLE: NO DEFINITY: NO BUBBLE STUDY: NO DIAGNOSIS: CONGESTIVE HEART FAILURE CARDIAC HISTORY: CATHERIZATION: NO SURGERY: YES PROSTHETIC VALVE: NO PACEMAKER: YES MEASUREMENTS (cm) DIASTOLIC (NORMALS) SYSTOLIC (NORMALS) IVSd 1.0 (0.6-1.2) LA Diam 4.0 (1.9-4.0) LVEF 78% LVIDd 3.8 (3.5-5.7) LVIDs 2.1 (2.0-3.5) %FS 46% LVPWd 1.0 (0.6-1.2) Ao Diam 2.4 (2.0-3.7) 2 DIMENSIONAL ASSESSMENT: RIGHT ATRIUM: NORMAL LEFT ATRIUM: DILATED RIGHT VENTRICLE: NORMAL LEFT VENTRICLE: NORMAL TRICUSPID VALVE: NORMAL MITRAL VALVE: MITRAL ANNULAR CALCIFICATION, HEAVY PULMONIC VALVE: NORMAL AORTIC VALVE: SCLEROTIC PERICARDIAL EFFUSION: NONE AORTIC ROOT: NORMAL LEFT VENTRICULAR WALL MOTION: NORMAL DOPPLER/COLOR FLOW: NO AORTIC STENOSIS OR AORTIC REGURGITATION. TRACE TRICUSPID REGURGITATION. NORMAL RIGHT VENTRICULAR SYSTOLIC PRESSURE. COMMENTS: NORMAL LEFT VENTRICULAR EJECTION FRACTIONS. DILATED LEFT ATRIUM. HEAVILY CALCIFIED MITRAL ANNULUS. AORTIC SCLEROSIS WITH NO AORTIC STENOSIS OR AORTIC REGURGITATION. PACEMAKER LEAD NOT EVIDENT. TECHNOLOGIST: FLY BUSTAMANTE RD
[2017-11-24] MEDS: Pantoprazole (granules) 40 MG/BLIST PACKET FT SCH (11:45)
[2017-11-24] MEDS: KCL 20 MEQ/100 mL IVPB 20 MEQ/100 ML BAG IV SCH ×2 (12:09→14:44)
[2017-11-24] MEDS ORDERED: Morphine 2 MG/2 ML SYR IV ONE (13:06)
--- NOTE | 2017-11-24 13:10 | PN ---
Date of Progress Note: 11/24/2017 Subjective: The patient seen and examined, chart reviewed, and case discussed with RN and Dr. Donnie harvey. The patient is much more awake and alert this morning. Still on pressors. Review of Systems: Negative except as above. Medications: Reviewed. Physical Examination: Vital Signs: Temperature 97.8, heart rate 86, blood pressure 149/58, respirations 15, O2 saturation 100% on 2 L via nasal cannula. General: Awake, alert, oriented x2, in some mild distress. Elderly female, ill-appearing, frail. B SC 21. CV: S1, S2. Peripheral pulses weak bilaterally. Respiratory: Diminished breath sounds on the right. Some rhonchi heard. No wheezing. Gastrointestinal: Abdomen is soft, nontender, nondistended. Positive bowel sounds. No guarding or rigidity. PEG tube in place with surrounding excoriation of the skin and discharge. Extremities: No clubbing, cyanosis, or edema. Neuro: Left-sided residual weakness. Laboratory Data: Sodium 139, potassium 3.2, chloride 101, CO2 31, BUN 28, creatinine 0.58, glucose 1 15, calcium 9.5, and albumin 2.9. WBC 15.1, H and H 9.9, 32.1, platelets 185, and neutrophils 72%. Blood cultures pending. Urine culture shows mixed power. Assessment: An 82-year-old female with; 1.Early sepsis, improving. 2.Right lower lobe pneumonia. We will continue IV antibiotics, likely aspiration pneumonia. Follow up on blood and sputum cultures. Appreciate Dr. Shell's input. 3.Hypotension secondary to sepsis. The patient is still on pressors. We will wean as tolerated. 4.Intractable nausea and vomiting, resolved. 5.Diabetes mellitus type 2. Continue sliding scale insulin. 6.History of cerebrovascular accident with left-sided residual weakness, stable. 7.Generalized weakness. 8.History of thyroid cancer. 9.Hypothyroidism, postsurgical. 10.Non-Hodgkin's lymphoma, in remission. 11.History of melanoma. 12.History of endocarditis. 13.History of deep venous thrombosis in the left arm. 14.Parkinson's disease. 15.Mixed hyperlipidemia. 16.Status post pacemaker. 17.Congestive heart failure, acute on chronic diastolic dysfunction. We will discontinue IV fluids. Repeat chest x-ray. 18.Hypokalemia, replace. 19.Gastrointestinal and deep venous thrombosis prophylaxis addressed. 20.PEG tube site infection. GI consulted for confirmation of placement. Plan: Continue close monitoring in ICU setting. Daughter, who is medical power of corporate associate attorney wishes t o transfer the patient to [facility]. She is in contact with her mother's radiology technologist. We will initi ate transfer once accepting physician found. JAUN Voice ID: [id number] Report ID: [id number]
[2017-11-24] MEDS: HYDROCODONE/APAP 10/325 TAB FT PRN ×2 (14:38→20:30)
[2017-11-24 16:25] VITALS: BMI 21.1
[2017-11-24] MEDS: BACLOFEN 10 MG TAB FT PRN (16:40)
--- NOTE | 2017-11-24 19:47 | CON ---
Date of Consultation: 11/24/2017 Reason For Consultation: Dysfunctional PEG tube and leak of fluid. History Of Present Illness: Ms. Evans is an 82-year-old female, who got admitted with sepsis and anem ia and is being treated in ICU. She had left-sided hemiparesis. She cannot communicate in the past. Had intermittent history of nausea, vomiting, and difficulty in swallowing. Also aspiration is con sidered. As a result, she has been put on PEG tube feeding for a while. However, her PEG tube is fu nctioning in the way that is leaking around and replacement PEG was placed in [facility]. I am not sure whether the patient is complaining of any pain or not. From the nurses observation, pr obably she is not. There is no history of hematemesis, melena, or hematochezia. Past Medical History: As elaborated above. In addition, diabetes, hypertension. Past Surgical History: PEG tube placement. Family History: From the chart, no gastrointestinal malignancy in the family. Social History: No alcohol or tobacco. Psychiatric History: As elaborated above. Allergies: REVIEWED IN THE CHART. Medications: Reviewed in the chart. Review of Systems: From the patient's lack of history, it is impossible to tell what is going on; however, looking at th e chart, probably she has a slow deterioration of her health status. Physical Examination: General: Elderly female, thin build, no other acute distress noted. HEENT: Bitemporal wasting, facial wasting noted. Oropharyngeal area otherwise dry. Neck: Supple. No lymphadenopathy. Trachea central in position. She tries to communicate simple th ing. However, cannot express. Pulmonary: Bilateral crackles, poor air exchange. Cardiac: S1, S2 is irregular. Abdomen: Soft, nontender, nondistended. Severe leak noted condition noted near the PEG t ube and peristomal leak noted. Bowel sounds are excellent. No hepatomegaly. No splenomegaly. No a cute tenderness. Extremities: Upper and lower extremities on the right side is normal, on the left side is wasted. Neurologic: She appears to be alert and oriented; however, judgment and mentation cannot be tested. Diagnostic Data: Reviewed and analyzed of importance. Initial hemoglobin is 9.9 and 32, but the rep eat is 13 and 42, probably one of them is a lab error. White cell count 15,000 and 70,000 respective ly. Impression, Plan And Recommendation: Ms. Evans is an 82-year-old female with multiple problems of cer ebrovascular accident, hemiparesis, diabetes, hypertension, dysphagia, PEG tube feeding. Her PEG tub e is leaking. This was probably due to progressive ischemic necrosis of the skin and combined with p oor healing. The PEG tube appears to be otherwise good; however, it has a balloon, therefore traction b y gravity. As a result, good apposition with the wall of the stomach and abdomen is impossible in th is case. However, the alternatives in this case will be changing the PEG tube into a mushroom . How ever, still there is no guarantee. It will be at best 50:50 chance that leak will improve. I have discussed this with the nurse and the patient; however, I am not sure how much the patient can understand. Nurses will have a discussion with the patient's daughter and we will make the final decision from there. In the meanwhile, continue on conservative treatment. AMRIT/JOHNNIE Voice ID: [id number] Report ID: [id number]
[2017-11-24] MEDS: ATORVASTATIN 10 MG TAB FT SCH (20:13)
[2017-11-25] MEDS: VANCOMYCIN/NS 1 gm 1 GM/250 ML BAG IVPB SCH (00:10)
[2017-11-25] MEDS: Meropenem 1,000 MG in NA CHLORIDE 0.9% 100 ML IV SCH ×3 (01:47→17:00)
[2017-11-25] MEDS: HYDROCODONE/APAP 10/325 TAB FT PRN ×2 (02:13→08:44)
[2017-11-25 05:54] LABS: Absolute Lymphocytes (CBC) 1.4 K/uL (0.7-4.9); Absolute Monocytes 0.9 K/uL (0.1-1.3); Absolute Neutrophil 5.3 K/uL (1.8-8.0); Basophils % 0.5 % (0-1.3); Eosinophils % 2.1 % (0-4.4); Hematocrit 28.2 % (36.0-45.0); Lymphocytes % 17.5 % (15.3-44.8); MCH 28.8 pg (27.0-35.0); MCV 88.2 fL (80-100); MPV 8.8 fL (7.6-11.3); Monocytes % 11.2 % (3.3-12.3)
[2017-11-25 06:04] LABS: ALT/SGPT 11 IU/L (10-60); AST/SGOT 16 IU/L (10-42); Albumin 2.7 g/dL (3.2-5.5); Alkaline Phosphatase 44 IU/L (42-121); BUN Blood Urea Nitrogen 31 mg/dL (6-20); Bicarbonate 28 mEq/L (21-31); Bilirubin Total 0.7 mg/dL (0.3-1.2); Glucose Level 115 mg/dL (65-120); Magnesium 1.8 mg/dL (1.8-2.5); Protein, Total 6.4 g/dL (6.0-8.3); Sodium Level 137 mEq/L (135-145)
[2017-11-25] MEDS: LEVOTHYROXINE SOD 0.125 MG TAB FT SCH (06:30)
[2017-11-25] MEDS: LIOTHYRONINE SOD 5 MCG TAB FT SCH (06:30)
[2017-11-25] MEDS: INSULIN -REGULAR HUMAN 50 UNIT/0.5 ML ML SQ SCH ×4 (07:30→21:00)
--- NOTE | 2017-11-25 08:16 | P.PN ---
Subjective Date of Service: 11/25/17 Chief Complaint: Pneumonia Subjective: Improving Patient is doing well she is alert responsive cooperative hemodynamically stable yeast in the urine Review of Systems is unable to be obtained Physical Examination - Vital Signs Temperature: 98.2 F Blood Pressure: 99/48 Pulse: 85 Respirations: 15 Pulse Ox (%): 100 - Physical Exam General: Alert, Cooperative Respiratory: Clear to auscultation bilaterally Cardiovascular: No edema, Regular rate/rhythm - Studies Microbiology Data (last 24 hrs): 11/23/17 12:50 Catheterized Urine [place] Count - Final >100,000 CFU/ML. 11/23/17 12:50 Catheterized Urine - Final 11/23/17 12:50 Blood - Blood Anaerobic Blood Culture - Final Assessment & Plan - Problems (Diagnosis) (1) Aspiration pneumonia Onset Date: 11/24/17 Current Visit: Yes Status: Acute Plan: Patient is 82 years of age debilitated from her stroke admitted with a right lower lobe pneumonia doing better white count is declined yeast in the urine agree with Diflucan white count has declined cultures and negative apart from the urine sputum cultures ordered Qualifiers: Laterality: right
[2017-11-25] MEDS: Pantoprazole (granules) 40 MG/BLIST PACKET FT SCH (08:39)
[2017-11-25] MEDS: FOLIC ACID 1 MG TABLET FT SCH (08:40)
[2017-11-25] MEDS: GABAPENTIN 100 MG CAP FT SCH ×3 (08:40→21:06)
[2017-11-25] MEDS: RIVAROXABAN 10 MG TABLET PO SCH (08:40)
[2017-11-25] MEDS: MEMANTINE HCL 10 MG TABLET FT SCH ×2 (08:40→21:06)
[2017-11-25] MEDS: FLUCONAZOLE 200mg IVPB 200 MG/100 ML BAG IV SCH (08:40)
--- NOTE | 2017-11-25 14:41 | PN ---
Date of Progress Note: 11/25/2017 Subjective: The patient is seen and examined. Chart reviewed and case discussed with RN and Dr. Shell. The patient was denied by [facility], [place]. The patient otherwise is doing well. No complaints. Review of Systems: Negative except as above. Medications: Reviewed. Physical Examination: Vital Signs: Temperature 98.2, heart rate 85, respirations 15, blood pressure 99/48, O2 100% on 2 L nasal cannula. General: Awake, alert, oriented x2, in mild distress. Elderly female, ill- appearing. CV: S1, S2. Peripheral pulses present. Respiratory: Moving air well bilaterally. No wheezing. Some diminished breath sounds on the right. No rhonchi. Gastrointestinal: Abdomen is soft, nontender, nondistended. Positive bowel sounds. PEG tube in place. Extremities: No clubbing, cyanosis, edema. Neuro: The patient has left-sided weakness. Diagnostic Data: Echocardiogram shows EF of 78%, dilated left atrium, heavily calcified mitral annulus, aortic sclerosis with no aortic stenosis or aortic regurg. Technically not evident. Laboratory Data: Sodium 137, potassium 4, chloride 103, CO2 28, BUN 31, creatinine 0.6, glucose 115, calcium 9.2, magnesium 1.8, albumin 2.7. WBC 7.7, H and H 9.2 and 28.2, platelets 133, neutrophils 68%. Blood cultures, no growth to date. Urine culture, 4+ yeast. Assessment And Plan: An 82-year-old female with: 1. Sepsis, improving, secondary to right lower lobe pneumonia and urinary tract infection. 2. Right lower lobe pneumonia. Continue IV antibiotics. Secondary to aspiration pneumonia. Follow up on blood cultures and sputum cultures pending. Appreciate Pulmonology input. 3. Hypotension secondary to sepsis, now off pressors. 4. Urinary tract infection, acute cystitis without hematuria secondary to yeast. We will add Diflucan. 5. Intractable nausea and vomiting, resolved. 6. Diabetes mellitus type 2. We will continue sliding scale insulin. 7. History of cerebrovascular accident with left-sided residual weakness, stable. 8. Generalized weakness. We will obtain PT evaluation. 9. History of thyroid cancer. 10. Hypothyroidism, postsurgical. 11. History of non-Hodgkin lymphoma, in remission. 12. History of melanoma. 13. History of endocarditis. Repeat echo shows normal left ventricular ejection fraction. 14. History of deep venous thrombosis in the left arm. 15. Parkinson disease. 16. Mixed hyperlipidemia. 17. Status post pacemaker. 18. Congestive heart failure, acute on chronic diastolic dysfunction. Repeat chest x-ray from yesterday shows mild congestive heart failure, volume overload pattern. No longer evident. No new parenchymal process. 19. Hypokalemia, replaced. We will continue to monitor. 20. Gastrointestinal and deep venous thrombosis prophylaxis with PPI and Lovenox. 21. PEG tube site infection. The patient has some excoriation of the skin around the PEG tube placement. GI consulted. No abnormality seen in PEG tube placement. Recommendations were made for alternative type of method to secure PEG tube; however, daughter declined and wishes to go to [facility] if she wants that changed. Plan: Step down from ICU. The patient was initially attempted to be transferred to [facility], for continuity of care but was declined. The patient was then referred for [facility] where majority of her physicians from [facility] go to and she was declined from there as well. Family does not want to pursue [facility] in [place]. Therefore, we will continue current treatment. JAUN Voice ID: [id number] Report ID: [id number] ANA
[2017-11-25] MEDS: ATORVASTATIN 10 MG TAB FT SCH (21:06)
[2017-11-25] MEDS: ALPRAZOLAM 0.25 MG TABLET PO SCH (21:06)
[2017-11-26] MEDS: VANCOMYCIN/NS 1 gm 1 GM/250 ML BAG IVPB SCH
[2017-11-26] MEDS: Meropenem 1,000 MG in NA CHLORIDE 0.9% 100 ML IV SCH ×3 (00:21→17:05)
[2017-11-26 04:52] LABS: Absolute Lymphocytes (CBC) 1.2 K/uL (0.7-4.9); Absolute Monocytes 0.7 K/uL (0.1-1.3); Absolute Neutrophil 3.9 K/uL (1.8-8.0); Basophils % 0.4 % (0-1.3); Eosinophils % 3.5 % (0-4.4); Hematocrit 26.9 % (36.0-45.0); Lymphocytes % 20.3 % (15.3-44.8); MCH 28.4 pg (27.0-35.0); MCV 88.4 fL (80-100); MPV 8.4 fL (7.6-11.3); Monocytes % 11.1 % (3.3-12.3); RBC Red Blood Cell Count 3.04 M/uL (3.86-4.86)
[2017-11-26 05:34] LABS: ALT/SGPT 10 IU/L (10-60); AST/SGOT 15 IU/L (10-42); Albumin 2.4 g/dL (3.2-5.5); Alkaline Phosphatase 43 IU/L (42-121); BUN Blood Urea Nitrogen 28 mg/dL (6-20); Bicarbonate 29 mEq/L (21-31); Bilirubin Total 0.6 mg/dL (0.3-1.2); Glucose Level 96 mg/dL (65-120); Potassium 3.4 mEq/L (3.6-5.0); Protein, Total 5.5 g/dL (6.0-8.3); Sodium Level 137 mEq/L (135-145)
[2017-11-26] MEDS: LIOTHYRONINE SOD 5 MCG TAB FT SCH (06:17)
[2017-11-26] MEDS: LEVOTHYROXINE SOD 0.125 MG TAB FT SCH (06:17)
[2017-11-26] MEDS: KCL 20 MEQ/100 mL IVPB 20 MEQ/100 ML BAG IV SCH ×2 (06:44→08:57)
[2017-11-26] MEDS: INSULIN -REGULAR HUMAN 50 UNIT/0.5 ML ML SQ SCH ×4 (07:30→21:00)
[2017-11-26] MEDS: FLUCONAZOLE 200mg IVPB 200 MG/100 ML BAG IV SCH (08:57)
[2017-11-26] MEDS: GABAPENTIN 100 MG CAP FT SCH ×3 (08:58→21:28)
[2017-11-26] MEDS: FOLIC ACID 1 MG TABLET FT SCH (08:58)
[2017-11-26] MEDS: ALPRAZOLAM 0.25 MG TABLET PO SCH ×2 (08:58→21:29)
[2017-11-26] MEDS: HYDROCODONE/APAP 10/325 TAB FT PRN ×2 (08:58→19:20)
[2017-11-26] MEDS: MEMANTINE HCL 10 MG TABLET FT SCH ×2 (08:58→21:29)
[2017-11-26] MEDS: Pantoprazole (granules) 40 MG/BLIST PACKET FT SCH (08:59)
[2017-11-26] MEDS: RIVAROXABAN 10 MG TABLET PO SCH (09:03)
--- NOTE | 2017-11-26 14:25 | PN ---
Date of Progress Note: 11/26/2017 Subjective: The patient seen and examined, chart reviewed, and case discussed with RN. Family at e bedside. Treatment plan explained. All questions answered. The patient reports some pain. Review of Systems: Negative except as above. Medications: Reviewed. Physical Examination: Vital Signs: Temperature 97.5, heart rate 87, blood pressure 128/60, respirations 16, and O2 100% on 1 L via nasal cannula. General: Awake, alert, oriented x3. Elderly female, somewhat ill-appearing, frail, BMI 21. CV: S1, S2. No murmurs. Peripheral pulses present. Respiratory: Moving air well bilaterally. No wheezing. Gastrointestinal: Abdomen is soft, nontender, nondistended. Positive bowel sounds. Extremities: No clubbing, cyanosis, or edema. Neurologic: Left-sided weakness. Laboratory Data: Sodium 137, potassium 3.4, chloride 103, CO2 29, BUN 28, creatinine 0.52, glucose 9 6, calcium 8.5, and albumin 2.4. WBC 6, H and H 8.6, 26.9, and platelets 116. Blood cultures, no gr owth to date. Urine culture 4+ yeast. Assessment: An 82-year-old female with; 1.Sepsis, resolving secondary to right lower lobe pneumonia and urinary tract infection. 2.Right lower lobe pneumonia secondary to aspiration. We will continue IV antibiotics. Blood cultu res negative to date. Appreciate Dr. Shell's input. 3.Urinary tract infection, acute cystitis without hematuria secondary to yeast. Diflucan added. 4.Hypotension secondary to sepsis, now off pressors, improving. 5.Intractable nausea and vomiting, resolved. 6.Diabetes mellitus type 2 with hyperglycemia. We will continue sliding scale insulin. 7.History of cerebrovascular accident with left-sided residual weakness, stable. 8.Generalized weakness. PT eval. 9.History of thyroid cancer. 10.Hypothyroidism, postsurgical. Continue home medications. 11.History of non-Hodgkin's lymphoma, in remission. 12.History of melanoma. 13.History of endocarditis. Repeat echo done. 14.History of deep venous thrombosis in the left arm. 15.Parkinson's disease. 16.Mixed hyperlipidemia. 17.Status post pacemaker. 18.Congestive heart failure, acute on chronic diastolic dysfunction. Chest x-ray shows improvement. 19.Hypokalemia, replace and monitor. 20.PEG tube site dysfunction. Per GI okay to use PEG tube. The patient does have some excoriation of the skin around the PEG tube. The patient to follow up at [facility] per daughter request. 21.Gastrointestinal and deep venous thrombosis prophylaxis with PPI and Lovenox. Plan: PT eval. Discharge planning. Follow up on final culture results. JAUN Voice ID: [id number] Report ID: [id number]
[2017-11-26] MEDS: ATORVASTATIN 10 MG TAB FT SCH (21:29)
[2017-11-27] MEDS: Meropenem 1,000 MG in NA CHLORIDE 0.9% 100 ML IV SCH ×3 (01:35→17:00)
[2017-11-27] MEDS: INSULIN -REGULAR HUMAN 50 UNIT/0.5 ML ML SQ SCH ×4 (06:00→18:00)
[2017-11-27 06:14] LABS: Absolute Lymphocytes (CBC) 1.6 K/uL (0.7-4.9); Absolute Monocytes 0.8 K/uL (0.1-1.3); Absolute Neutrophil 3.8 K/uL (1.8-8.0); Basophils % 0.7 % (0-1.3); Eosinophils % 4.2 % (0-4.4); Hematocrit 29.3 % (36.0-45.0); Lymphocytes % 24.9 % (15.3-44.8); MCH 28.2 pg (27.0-35.0); MCV 88.3 fL (80-100); MPV 8.5 fL (7.6-11.3); Monocytes % 11.6 % (3.3-12.3); RBC Red Blood Cell Count 3.32 M/uL (3.86-4.86)
[2017-11-27 06:24] LABS: BUN Blood Urea Nitrogen 21 mg/dL (6-20); Bicarbonate 32 mEq/L (21-31); Glucose Level 90 mg/dL (65-120); Potassium 4.1 mEq/L (3.6-5.0); Sodium Level 137 mEq/L (135-145)
[2017-11-27] MEDS: LIOTHYRONINE SOD 5 MCG TAB FT SCH (06:33)
[2017-11-27] MEDS: LEVOTHYROXINE SOD 0.125 MG TAB FT SCH (06:33)
[2017-11-27] MEDS: Pantoprazole (granules) 40 MG/BLIST PACKET FT SCH (08:38)
[2017-11-27] MEDS: FLUCONAZOLE 200mg IVPB 200 MG/100 ML BAG IV SCH (08:38)
[2017-11-27] MEDS: RIVAROXABAN 10 MG TABLET PO SCH (08:38)
[2017-11-27] MEDS: MEMANTINE HCL 10 MG TABLET FT SCH ×2 (08:39→21:49)
[2017-11-27] MEDS: GABAPENTIN 100 MG CAP FT SCH ×3 (08:39→21:49)
[2017-11-27] MEDS: FOLIC ACID 1 MG TABLET FT SCH (08:39)
[2017-11-27] MEDS: BACLOFEN 10 MG TAB FT PRN ×2 (08:39→21:49)
[2017-11-27] MEDS: ALPRAZOLAM 0.25 MG TABLET PO SCH ×2 (08:39→21:49)
[2017-11-27] MEDS ORDERED: NA CHLORIDE 0.9% 250 ML ONE (08:42)
[2017-11-27] MEDS: HYDROCODONE/APAP 10/325 TAB FT PRN (09:26)
--- NOTE | 2017-11-27 09:55 | P.PN ---
Subjective Date of Service: 11/27/17 Chief Complaint: Pneumonia Patient is improving discussed with daughter she was just recently discharged from [facility] the mother's later transferred to [facility] diagnosis of right-sided pneumonia she has had bronchoscopies diagnosis of parainfluenza pneumonia will obtain a discharge summary clinically she is doing much better very comfortable he also has some mucus plugs Review of Systems is unable to be obtained Physical Examination - Vital Signs Temperature: 97.7 F Blood Pressure: 128/61 Pulse: 89 Respirations: 16 Pulse Ox (%): 100 - Physical Exam General: Alert, Cooperative Respiratory: Clear to auscultation bilaterally Cardiovascular: No edema Assessment & Plan - Problems (Diagnosis) (1) Aspiration pneumonia Onset Date: 11/24/17 Current Visit: Yes Status: Acute Plan: Patient is clinically improving she has a right parahilar pneumonia was diagnosed with pneumonia at [facility] continue with present treatment patient is high risk for a super added fungal infection change to Diflucan via the PEG tube also ordered some fungal cultures chemistries unremarkable white count is back to normal vital signs stable oxygenation satisfactory Qualifiers: Laterality: right
--- NOTE | 2017-11-27 13:53 | PN ---
Date of Progress Note: 11/27/2017 Subjective: The patient seen and examined, chart reviewed and case discussed with RN and Dr. Shell. Daughter at the bedside. Treatment plan explained. All questions answered. The patient denies any acute events overnight. Review of Systems: Negative except as above. Medications: Reviewed. Physical Examination: Vital Signs: Temperature 97.7, heart rate 89, blood pressure 128/61, respirations 16, and O2 100% on 2 L via nasal cannula. General: Awake, alert, and oriented x2. Some mild distress, ill-appearing elderly female, frail. BMI 21. CV: S1 and S2. Peripheral pulses present. Respiratory: Diminished breath sounds on the right, improving. No wheezing or crackles. Gastrointestinal: Abdomen is soft, nontender, and nondistended. Positive bowel sounds. Extremities: No clubbing, cyanosis, or edema. Skin: PEG tube in place and suprapubic catheter in place. Neurologic: Left-sided weakness. Laboratory Data: Sodium 137, potassium 4.1, chloride 102, CO2 of 32, BUN 21, creatinine 0.42, glucose 90, calcium 8.5. WBC 6.5, H and H are 9.3 and 29.3, platelets 142, neutrophils 58%. Blood cultures, no growth to date. Fungal cultures pending. Urine culture growing yeast. Assessment And Plan: An 82-year-old female with; 1. Sepsis, resolving, secondary to right lower lobe pneumonia and urinary tract infection. 2. Right lower lobe pneumonia, secondary to aspiration. Continue IV antibiotics. Blood cultures negative to date. Dr. Shell on board. 3. Urinary tract infection. Acute cystitis without hematuria secondary to yeast. Diflucan dose adjusted. 4. Hypotension, secondary to sepsis, improved and now normotensive. 5. Intractable nausea and vomiting, resolved. 6. Diabetes mellitus type 2 with hyperglycemia. We will continue sliding scale insulin. 7. History of cerebrovascular accident with left-sided residual weakness, stable. 8. Generalized weakness. Continue PT evaluation. Daughter is not interested in going to SNF. She has had bad experience previously. 9. History of thyroid cancer. 10. Hypothyroidism, postsurgical. Continue home medications. 11. History of non-Hodgkin lymphoma, in remission. 12. History of melanoma. 13. History of endocarditis. 14. History of deep venous thrombosis in the left arm. 15. Parkinson disease. 16. Mixed hyperlipidemia. Continue medications. 17. Status post pacemaker. 18. Congestive heart failure, acute on chronic diastolic dysfunction. We will repeat chest x-ray. Continue with treatment. Ejection fraction 78%. 19. Hypokalemia, replaced. 20. PEG tube site dysfunction. GI cleared the PEG tube for continued use. We will continue PEG tube feeds. 21. Gastrointestinal and deep venous thrombosis prophylaxis with PPI and Lovenox. Plan: Obtain records from [facility]. Apparently, patient had 2 bronch's and was found to have parainfluenza. Appreciate Dr. Shell's input. /JOHNNIE Voice ID: [id number] Report ID: [id number] MTDKavon
--- NOTE | 2017-11-27 17:06 | RAD REPORT ---
EXAM DESCRIPTION: RAD - Chest Single View - 11/27/2017 4:46 pm CLINICAL HISTORY: Pneumonia COMPARISON: November 24 TECHNIQUE: AP portable chest image was obtained 1633 hours . FINDINGS: Lung volumes are low. Chronic interstitial lung disease again noted. Right base pleural ca lcifications and chronic lung parenchymal opacification again noted. Medial left base opacification h as not changed. No new or progressive lung parenchymal process seen. Heart and vasculature are normal. No measurable pleural effusion and no pneumothorax. No gross bony abnormality seen. No acute aortic findings suspected. IMPRESSION: No new or progressive cardiopulmonary finding. Chest is not substantially different from comparison.
[2017-11-27] MEDS: ATORVASTATIN 10 MG TAB FT SCH (21:00)
[2017-11-28] MEDS: Meropenem 1,000 MG in NA CHLORIDE 0.9% 100 ML IV SCH ×3 (01:02→17:00)
[2017-11-28 05:42] LABS: Absolute Lymphocytes (CBC) 1.8 K/uL (0.7-4.9); Absolute Monocytes 0.7 K/uL (0.1-1.3); Absolute Neutrophil 3.6 K/uL (1.8-8.0); Basophils % 0.5 % (0-1.3); Eosinophils % 3.8 % (0-4.4); Hematocrit 26.4 % (36.0-45.0); Lymphocytes % 27.7 % (15.3-44.8); MCH 27.9 pg (27.0-35.0); MCV 88.7 fL (80-100); MPV 8.9 fL (7.6-11.3); Monocytes % 10.6 % (3.3-12.3); RBC Red Blood Cell Count 2.98 M/uL (3.86-4.86)
[2017-11-28 05:45] LABS: BUN Blood Urea Nitrogen 17 mg/dL (6-20); Bicarbonate 31 mEq/L (21-31); Glucose Level 97 mg/dL (65-120); Potassium 3.9 mEq/L (3.6-5.0); Sodium Level 137 mEq/L (135-145)
[2017-11-28] MEDS: LIOTHYRONINE SOD 5 MCG TAB FT SCH (05:46)
[2017-11-28] MEDS: LEVOTHYROXINE SOD 0.125 MG TAB FT SCH (05:47)
[2017-11-28] MEDS: INSULIN -REGULAR HUMAN 50 UNIT/0.5 ML ML SQ SCH ×4 (06:00→18:00)
[2017-11-28 06:49] LABS: Magnesium 1.7 mg/dL (1.8-2.5)
[2017-11-28] MEDS ORDERED: POTASSIUM 25 MEQ EFFERV TAB PO ONE ×2 (09:00→11:00)
[2017-11-28] MEDS ORDERED: MAGNESIUM SULFATE 1 gm IVPB 1 GM/100 ML BAG IV ONE ×2 (09:00→11:00)
[2017-11-28] MEDS: FLUCONAZOLE 100 MG TAB PO SCH (10:23)
[2017-11-28] MEDS: Pantoprazole (granules) 40 MG/BLIST PACKET FT SCH (10:23)
[2017-11-28] MEDS: RIVAROXABAN 10 MG TABLET PO SCH (10:23)
[2017-11-28] MEDS: MEMANTINE HCL 10 MG TABLET FT SCH ×2 (10:23→21:02)
[2017-11-28] MEDS: FOLIC ACID 1 MG TABLET FT SCH (10:23)
[2017-11-28] MEDS: GABAPENTIN 100 MG CAP FT SCH ×3 (10:23→21:02)
[2017-11-28] MEDS: ALPRAZOLAM 0.25 MG TABLET PO SCH ×2 (10:24→21:00)
[2017-11-28] MEDS: ALBUTEROL 2.5 MG/3 ML NEB SOL NEB SCH ×2 (15:12→19:29)
--- NOTE | 2017-11-28 15:59 | PN ---
Date of Progress Note: 11/28/2017 Subjective: The patient seen and examined. Chart reviewed and case discussed with RN. No family pr esent at bedside. The patient still somewhat lethargic, barely wakes up for examination. Denies any pain. Review of Systems: Limited due to patient's medical condition. Medications: Reviewed. Physical Examination: Vital Signs: Temperature 97.1, heart rate 71, blood pressure 107/53, respirations 20, O2 100% on 2 L via nasal cannula. General: Asleep, arousable. No acute distress. Ill-appearing elderly female, lethargic, frail. BM I 21. CV: S1, S2. Peripheral pulses present. Respiratory: Moving air well bilaterally. No wheezing. Gastrointestinal: Abdomen is soft, nontender, nondistended. Positive bowel sounds. PEG tube in rachelle ce. Extremities: No clubbing, cyanosis, or edema. : Suprapubic catheter in place. Neuro: Left-sided weakness. Laboratory Data: Sodium 137, potassium 3.9, chloride 102, CO2 31, BUN 17, creatinine 0.39, glucose 9 7, calcium 8.1, magnesium 1.7. WBC 6.2, H and H 8.3, 26.4, platelets 124. Blood cultures, no growth to date. Blood fungal culture is pending. Urine culture showing 4+ yeast. Assessment And Plan: An 82-year-old female with; 1.Sepsis, resolving secondary to right lower lobe pneumonia, urinary tract infection. 2.Right lower lobe pneumonia, aspiration type. We will continue IV antibiotics. Blood cultures neg ative to date. Fungal blood cultures pending. Appreciate Dr. Shell's input. 3.Urinary tract infection, acute cystitis without hematuria secondary to yeast. Continue Diflucan. 4.Intractable nausea and vomiting, resolved. 5.Diabetes mellitus type 2 with hyperglycemia. Continue sliding scale insulin. 6.History of cerebrovascular accident with left-sided residual weakness. 7.Generalized weakness. Continue PT evaluation. Daughter adamantly denying SNF placement. To cont in home health upon discharge. 8.History of thyroid cancer. 9.History of non-Hodgkin's lymphoma in remission. 10.Hypothyroidism, postsurgical. Continue home medications. 11.History of melanoma. 12.History of endocarditis. 13.History of deep vein thrombosis in the left arm. 14.Parkinson disease. 15.Mixed hyperlipidemia. Continue medications. 16.Status post pacemaker. 17.Congestive heart failure, acute on chronic diastolic dysfunction. Repeat EF is 78%. Chest x-ray personally reviewed, showed no new or progressive cardiopulmonary finding. Chest is not substantial ly different from comparison. 18.Hypomagnesemia, replace and monitor. 19.PEG tube site dysfunction cleared for use by GI. No difficulties subsequently. 20.Gastrointestinal and deep venous thrombosis prophylaxis with PPI and Lovenox. Plan: Obtain records from [facility]. Continue antibiotics. Follow up on cultures. Discharge plann ingEliz CORTES/JOHNNIE Voice ID: [id number] Report ID: [id number]
[2017-11-28] MEDS: ATORVASTATIN 10 MG TAB FT SCH (21:00)
[2017-11-28] MEDS: HYDROCODONE/APAP 10/325 TAB FT PRN (21:21)
--- NOTE | 2017-11-28 21:39 | P.PN ---
Subjective Date of Service: 11/28/17 Chief Complaint: Pneumonia Physical Examination - Vital Signs Temperature: 97.8 F Blood Pressure: 111/64 Pulse: 110 Respirations: 20 Pulse Ox (%): 100 - Studies Microbiology Data (last 24 hrs): 11/23/17 12:50 Blood - Blood Aerobic Blood Culture - Final No growth in 5 days. 11/23/17 12:50 Blood - Blood Anaerobic Blood Culture - Final Assessment & Plan - Problems (Diagnosis) (1) Aspiration pneumonia Onset Date: 11/24/17 Current Visit: Yes Status: Acute Qualifiers: Aspiration pneumonia type: unspecified Laterality: right Lung location: lower lobe of lung Qualified Code(s): J69.0 - Pneumonitis due to inhalation of food and vomit (2) Sepsis Onset Date: 09/23/15 Current Visit: No Status: Acute Qualifiers: Sepsis type: sepsis due to unspecified organism Qualified Code(s): A41.9 - Sepsis, unspecified organism (3) UTI (urinary tract infection) Onset Date: 01/27/16 Current Visit: No Status: Acute Qualifiers: Urinary tract infection type: acute cystitis Hematuria presence: without hematuria Qualified Code(s): N30.00 - Acute cystitis without hematuria (4) Vomiting Onset Date: 11/24/17 Current Visit: No Status: Acute Qualifiers: Vomiting type: unspecified Vomiting Intractability: unspecified Nausea presence: with nausea Qualified Code(s): R11.2 - Nausea with vomiting, unspecified (5) Chronic diastolic (congestive) heart failure Onset Date: 07/28/17 Current Visit: No Status: Chronic (6) Chronic obstructive lung disease COPD Onset Date: 12/18/15 Current Visit: No Status: Chronic (7) Dementia Onset Date: 10/10/15 Current Visit: No Status: Chronic Qualifiers: Dementia type: Parkinson's disease Dementia behavioral disturbance: without behavioral disturbance Qualified Code(s): G20 - Parkinson's disease; F02.80 - Dementia in other diseases classified elsewhere without behavioral disturbance (8) HTN (hypertension) Onset Date: 10/10/15 Current Visit: No Status: Chronic Qualifiers: Hypertension type: essential hypertension Qualified Code(s): I10 - Essential (primary) hypertension (9) History of CVA with residual deficit Onset Date: 10/10/15 Current Visit: No Status: Chronic (10) History of pacemaker Current Visit: No Status: Chronic (11) Hypothyroidism Onset Date: 07/28/17 Current Visit: No Status: Chronic Qualifiers: Hypothyroidism type: postoperative Qualified Code(s): E89.0 - Postprocedural hypothyroidism (12) Malfunction of percutaneous endoscopic gastrostomy (PEG) tube Onset Date: 07/28/17 Current Visit: No Status: Acute
[2017-11-29] MEDS: Meropenem 1,000 MG in NA CHLORIDE 0.9% 100 ML IV SCH ×3 (01:02→17:01)
[2017-11-29] MEDS: ALBUTEROL 2.5 MG/3 ML NEB SOL NEB SCH ×4 (02:20→19:13)
[2017-11-29] MEDS: BACLOFEN 10 MG TAB FT PRN (02:31)
[2017-11-29] MEDS: NEPRO 1,000 ML BOT RTH SCH (03:04)
[2017-11-29 04:49] LABS: Absolute Lymphocytes (CBC) 1.9 K/uL (0.7-4.9); Absolute Monocytes 0.8 K/uL (0.1-1.3); Absolute Neutrophil 3.6 K/uL (1.8-8.0); Basophils % 0.6 % (0-1.3); Eosinophils % 3.5 % (0-4.4); Hematocrit 23.8 % (36.0-45.0); Lymphocytes % 29.1 % (15.3-44.8); MCH 27.9 pg (27.0-35.0); MCV 88.7 fL (80-100); MPV 8.3 fL (7.6-11.3); Monocytes % 11.8 % (3.3-12.3); RBC Red Blood Cell Count 2.68 M/uL (3.86-4.86)
[2017-11-29 05:39] LABS: BUN Blood Urea Nitrogen 18 mg/dL (6-20); Bicarbonate 35 mEq/L (21-31); Glucose Level 100 mg/dL (65-120); Sodium Level 139 mEq/L (135-145)
[2017-11-29] MEDS: INSULIN -REGULAR HUMAN 50 UNIT/0.5 ML ML SQ SCH ×4 (06:00→18:00)
[2017-11-29] MEDS: LIOTHYRONINE SOD 5 MCG TAB FT SCH (06:03)
[2017-11-29] MEDS: LEVOTHYROXINE SOD 0.125 MG TAB FT SCH (06:03)
[2017-11-29 06:32] LABS: Hematocrit 23.7 % (36.0-45.0)
[2017-11-29] MEDS ORDERED: MAGNESIUM SULFATE 1 gm IVPB 1 GM/100 ML BAG IV ONE (09:00)
[2017-11-29] MEDS: ALPRAZOLAM 0.25 MG TABLET PO SCH ×2 (09:00→22:08)
[2017-11-29] MEDS: RIVAROXABAN 10 MG TABLET PO SCH (09:49)
[2017-11-29] MEDS: FLUCONAZOLE 100 MG TAB PO SCH (09:49)
[2017-11-29] MEDS: MEMANTINE HCL 10 MG TABLET FT SCH ×2 (09:50→20:41)
[2017-11-29] MEDS: Pantoprazole (granules) 40 MG/BLIST PACKET FT SCH (09:50)
[2017-11-29] MEDS: FOLIC ACID 1 MG TABLET FT SCH (09:50)
[2017-11-29] MEDS: GABAPENTIN 100 MG CAP FT SCH ×3 (09:50→20:41)
[2017-11-29] MEDS: ACETAMINOPHEN 500 MG TAB PO PRN (11:48)
[2017-11-29] MEDS: HYDROCODONE/APAP 10/325 TAB FT PRN (12:52)
--- NOTE | 2017-11-29 16:17 | P.PN ---
Subjective Date of Service: 11/29/17 Chief Complaint: Pneumonia Subjective: Improving Physical Examination - Vital Signs Temperature: 97.4 F Blood Pressure: 122/58 Pulse: 88 Respirations: 16 Pulse Ox (%): 90 - Physical Exam General: Alert, In no apparent distress, Cooperative HEENT: Atraumatic Neck: Supple Respiratory: Expiratory wheezes (Bilateral) Cardiovascular: Normal pulses Gastrointestinal: Normal bowel sounds, Soft and benign, Non-distended Neurological: Normal speech, Normal strength at 5/5 x4 extr, Normal tone - Studies Microbiology Data (last 24 hrs): 11/23/17 12:50 Blood - Blood Aerobic Blood Culture - Final No growth in 5 days. 11/23/17 12:50 Blood - Blood Anaerobic Blood Culture - Final Medications List Reviewed: Yes Assessment & Plan - Problems (Diagnosis) (1) Aspiration pneumonia Onset Date: 11/24/17 Current Visit: Yes Status: Acute Plan: Patient may have underlying superimposed fungal infection. Case discussed with pulmonology. Will obtain records from [facility] to see what cultures were done at that time. Patient clinically improved. Anticipate possible discharge tomorrow. Qualifiers: Aspiration pneumonia type: unspecified Laterality: right Lung location: lower lobe of lung Qualified Code(s): J69.0 - Pneumonitis due to inhalation of food and vomit (2) Sepsis Onset Date: 09/23/15 Current Visit: No Status: Acute Plan: Superimposed fungal infection with recovering pneumonia. Case discussed with pulmonology. Will obtain and review information from [facility]. Possible discharge in the next day. Qualifiers: Sepsis type: sepsis due to unspecified organism Qualified Code(s): A41.9 - Sepsis, unspecified organism (3) UTI (urinary tract infection) Onset Date: 01/27/16 Current Visit: No Status: Acute Plan: Continue as above. Qualifiers: Urinary tract infection type: acute cystitis Hematuria presence: without hematuria Qualified Code(s): N30.00 - Acute cystitis without hematuria (4) Vomiting Onset Date: 11/24/17 Current Visit: No Status: Acute Plan: Overall stable. Qualifiers: Vomiting type: unspecified Vomiting Intractability: unspecified Nausea presence: with nausea Qualified Code(s): R11.2 - Nausea with vomiting, unspecified (5) Chronic diastolic (congestive) heart failure Onset Date: 07/28/17 Current Visit: No Status: Chronic Plan: Stable this time. Will continue monitor closely. (6) Chronic obstructive lung disease COPD Onset Date: 12/18/15 Current Visit: No Status: Chronic Plan: Continue with medication. (7) Dementia Onset Date: 10/10/15 Current Visit: No Status: Chronic Plan: Overall stable. Qualifiers: Dementia type: Parkinson's disease Dementia behavioral disturbance: without behavioral disturbance Qualified Code(s): G20 - Parkinson's disease; F02.80 - Dementia in other diseases classified elsewhere without behavioral disturbance (8) HTN (hypertension) Onset Date: 10/10/15 Current Visit: No Status: Chronic Plan: Stable. Will monitor closely. Qualifiers: Hypertension type: essential hypertension Qualified Code(s): I10 - Essential (primary) hypertension (9) History of CVA with residual deficit Onset Date: 10/10/15 Current Visit: No Status: Chronic Plan: Overall stable. (10) History of pacemaker Current Visit: No Status: Chronic Plan: Stable (11) Hypothyroidism Onset Date: 07/28/17 Current Visit: No Status: Chronic Plan: Continue medication Qualifiers: Hypothyroidism type: postoperative Qualified Code(s): E89.0 - Postprocedural hypothyroidism (12) Malfunction of percutaneous endoscopic gastrostomy (PEG) tube Onset Date: 07/28/17 Current Visit: No Status: Acute Plan: Stable at this time. (13) Anemia Onset Date: 12/23/15 Current Visit: No Status: Acute Plan: This likely of chronic disease. Will monitor H&H. Will transfuse if hemoglobin less than 7.0. Qualifiers: Anemia type: other cause Other causes of anemia: chronic disease, other Qualified Code(s): D63.8 - Anemia in other chronic diseases classified elsewhere Discharge Plan: Home Plan to discharge in: 24 Hours Time Spent Managing Pts Care (In Minutes): 55
[2017-11-29 17:38] LABS: Hematocrit 22.6 % (36.0-45.0)
--- NOTE | 2017-11-29 19:02 | RAD REPORT ---
EXAM DESCRIPTION: RAD - Chest Single View - 11/29/2017 6:49 pm CLINICAL HISTORY: Shortness of breath. COMPARISON: 11/27/2017 FINDINGS: Portable technique limits examination quality. Small right pleural effusion noted. The lungs are grossly clear. The heart is normal in size. No disp laced fractures.Dual lead pacer is noted. IMPRESSION: Stable chest.
[2017-11-29] MEDS: HYDROCODONE/APAP 7.5/325 MG TAB PO PRN (20:41)
[2017-11-29] MEDS: ATORVASTATIN 10 MG TAB FT SCH (20:43)
[2017-11-30] MEDS: ALBUTEROL 2.5 MG/3 ML NEB SOL NEB SCH ×4 (01:18→20:03)
[2017-11-30] MEDS: Meropenem 1,000 MG in NA CHLORIDE 0.9% 100 ML IV SCH ×3 (01:36→16:20)
--- NOTE | 2017-11-30 03:08 | P.PN ---
Date of Service: 11/30/17 Called regarding low H&H; reviewed chart and note stating note to transfuse unless Hgb is less then 7.0. Hemodynamically stable, and no signs of active bleeding. Will check labs, electrolytes, B12, folic acid, reticulocyte, and TSH , free T4. Recheck H&H in the AM.
[2017-11-30] MEDS: NEPRO 1,000 ML BOT RTH SCH (03:59)
[2017-11-30 04:55] LABS: Absolute Lymphocytes (CBC) 2.1 K/uL (0.7-4.9); Absolute Monocytes 0.7 K/uL (0.1-1.3); Absolute Neutrophil 3.7 K/uL (1.8-8.0); Basophils % 0.8 % (0-1.3); Eosinophils % 4.6 % (0-4.4); Hematocrit 22.6 % (36.0-45.0); Lymphocytes % 30.7 % (15.3-44.8); MCH 28.4 pg (27.0-35.0); MCV 88.8 fL (80-100); MPV 8.4 fL (7.6-11.3); Monocytes % 10.3 % (3.3-12.3); RBC Red Blood Cell Count 2.55 M/uL (3.86-4.86)
[2017-11-30 05:42] LABS: ALT/SGPT 12 IU/L (10-60); AST/SGOT 18 IU/L (10-42); Albumin 2.5 g/dL (3.2-5.5); Bicarbonate 36 mEq/L (21-31); Potassium 4.1 mEq/L (3.6-5.0); Protein, Total 5.8 g/dL (6.0-8.3); Sodium Level 138 mEq/L (135-145)
[2017-11-30 05:51] LABS: Alkaline Phosphatase 40 IU/L (42-121); BUN Blood Urea Nitrogen 17 mg/dL (6-20); Bilirubin Total 0.2 mg/dL (0.3-1.2); Ferritin 678.5 ng/ml (11.0-306.8); Folic Acid, (Folate) > 22.3 ng/ml (>5.21); Glucose Level 86 mg/dL (65-120); Magnesium 1.9 mg/dL (1.8-2.5); Phosphorus 2.8 mg/dL (2.5-4.3); Thyroid Stimulating Hormone 0.19 uIU/mL (0.34-5.60); Transferrin 114 mg/dL (192-382)
[2017-11-30] MEDS ORDERED: NA CHLORIDE 0.9% 250 ML IV PRN (05:53)
[2017-11-30] MEDS: LIOTHYRONINE SOD 5 MCG TAB FT SCH (05:54)
[2017-11-30] MEDS: LEVOTHYROXINE SOD 0.125 MG TAB FT SCH (05:54)
[2017-11-30] MEDS ORDERED: NA CHLORIDE 0.9% 250 ML IV ONE (06:00)
[2017-11-30] MEDS: INSULIN -REGULAR HUMAN 50 UNIT/0.5 ML ML SQ SCH ×4 (06:00→17:48)
[2017-11-30] MEDS: ACETAMINOPHEN 500 MG TAB PO PRN (06:05)
[2017-11-30] MEDS: FOLIC ACID 1 MG TABLET FT SCH (08:30)
[2017-11-30] MEDS: GABAPENTIN 100 MG CAP FT SCH ×3 (08:31→21:35)
[2017-11-30] MEDS: FLUCONAZOLE 100 MG TAB PO SCH (08:31)
[2017-11-30] MEDS: MEMANTINE HCL 10 MG TABLET FT SCH ×2 (08:31→21:35)
[2017-11-30] MEDS: HYDROCODONE/APAP 7.5/325 MG TAB PO PRN ×3 (08:31→23:06)
[2017-11-30] MEDS: Pantoprazole (granules) 40 MG/BLIST PACKET FT SCH (08:31)
[2017-11-30] MEDS: SPIRONOLACTONE 25 MG TABLET FT SCH (08:33)
[2017-11-30] MEDS: ALPRAZOLAM 0.25 MG TABLET PO SCH ×2 (09:42→21:35)
[2017-11-30] MEDS: SOD FERRIC GLUC COMPLX/SUCROSE 125 MG in NA CHLORIDE 0.9% 100 ML IV SCH (09:42)
[2017-11-30] MEDS: RIVAROXABAN 10 MG TABLET PO SCH (09:50)
[2017-11-30 10:27] LABS: Hematocrit 21.5 % (36.0-45.0)
--- NOTE | 2017-11-30 13:01 | P.PN ---
Subjective Date of Service: 11/30/17 Chief Complaint: Pneumonia Subjective: Improving Physical Examination - Vital Signs Temperature: 97.8 F Blood Pressure: 115/70 Pulse: 88 Respirations: 16 Pulse Ox (%): 100 - Physical Exam General: Alert, In no apparent distress, Cooperative HEENT: Atraumatic Neck: Supple Respiratory: Clear to auscultation bilaterally, Normal air movement Cardiovascular: Normal pulses, Regular rate/rhythm Gastrointestinal: Normal bowel sounds, Soft and benign, Non-distended, No tenderness, No masses, No rebound, No guarding Musculoskeletal: No tenderness, No warmth, Other (Central line evaluated. No abnormality noted.) Integumentary: No erythema, No warmth, No cyanosis Neurological: Abnormal strength (Left-sided weakness with history of CVA. Muscle wasting to the lower extremities.) - Studies Medications List Reviewed: Yes Assessment & Plan - Problems (Diagnosis) (1) Aspiration pneumonia Onset Date: 11/24/17 Current Visit: Yes Status: Acute Plan: Patient may have underlying superimposed fungal infection. Case discussed with pulmonology. Will obtain records from [facility] and from [facility]. Patient had bronchoscopy at that time. Patient with anemia. Patient will get transfusion today. Anticipate possible discharge tomorrow. Patient will likely need Augmentin and Diflucan as an outpatient. Qualifiers: Aspiration pneumonia type: unspecified Laterality: right Lung location: lower lobe of lung Qualified Code(s): J69.0 - Pneumonitis due to inhalation of food and vomit (2) Sepsis Onset Date: 09/23/15 Current Visit: No Status: Acute Plan: Superimposed fungal infection with recovering pneumonia. Case discussed with pulmonology. Will continue with above recommendation Qualifiers: Sepsis type: sepsis due to unspecified organism Qualified Code(s): A41.9 - Sepsis, unspecified organism (3) UTI (urinary tract infection) Onset Date: 01/27/16 Current Visit: No Status: Acute Plan: Continue as above. Qualifiers: Urinary tract infection type: acute cystitis Hematuria presence: without hematuria Qualified Code(s): N30.00 - Acute cystitis without hematuria (4) Vomiting Onset Date: 11/24/17 Current Visit: No Status: Acute Plan: Overall stable. Qualifiers: Vomiting type: unspecified Vomiting Intractability: unspecified Nausea presence: with nausea Qualified Code(s): R11.2 - Nausea with vomiting, unspecified (5) Chronic diastolic (congestive) heart failure Onset Date: 07/28/17 Current Visit: No Status: Chronic Plan: Stable this time. Will continue monitor closely. (6) Chronic obstructive lung disease COPD Onset Date: 12/18/15 Current Visit: No Status: Chronic Plan: Continue with medication. (7) Dementia Onset Date: 10/10/15 Current Visit: No Status: Chronic Plan: Overall stable. Qualifiers: Dementia type: Parkinson's disease Dementia behavioral disturbance: without behavioral disturbance Qualified Code(s): G20 - Parkinson's disease; F02.80 - Dementia in other diseases classified elsewhere without behavioral disturbance (8) HTN (hypertension) Onset Date: 10/10/15 Current Visit: No Status: Chronic Plan: Stable. Will monitor closely. Qualifiers: Hypertension type: essential hypertension Qualified Code(s): I10 - Essential (primary) hypertension (9) History of CVA with residual deficit Onset Date: 10/10/15 Current Visit: No Status: Chronic Plan: Overall stable. (10) History of pacemaker Current Visit: No Status: Chronic Plan: Stable (11) Hypothyroidism Onset Date: 07/28/17 Current Visit: No Status: Chronic Plan: Continue medication Qualifiers: Hypothyroidism type: postoperative Qualified Code(s): E89.0 - Postprocedural hypothyroidism (12) Malfunction of percutaneous endoscopic gastrostomy (PEG) tube Onset Date: 07/28/17 Current Visit: No Status: Acute Plan: Stable at this time. (13) Anemia Onset Date: 12/23/15 Current Visit: No Status: Acute Plan: This likely of chronic disease. H&H low at 7.0. Will transfuse 1 unit of blood. Will continue monitor closely. Anticipate discharge tomorrow once hemoglobin stable. Qualifiers: Anemia type: other cause Other causes of anemia: chronic disease, other Qualified Code(s): D63.8 - Anemia in other chronic diseases classified elsewhere Discharge Plan: Home Plan to discharge in: 24 Hours Time Spent Managing Pts Care (In Minutes): 55
[2017-11-30] MEDS ORDERED: NA CHLORIDE 0.9% 250 ML ONE (13:51)
[2017-11-30] MEDS ORDERED: FUROSEMIDE 20 MG/ 2ML VIAL IV ONE (14:00)
[2017-11-30 18:54] LABS: Hematocrit 29.5 % (36.0-45.0)
[2017-11-30] MEDS: ATORVASTATIN 10 MG TAB FT SCH (21:35)
[2017-12-01] MEDS: Meropenem 1,000 MG in NA CHLORIDE 0.9% 100 ML IV SCH ×2 (01:29→10:46)
[2017-12-01] MEDS: BACLOFEN 10 MG TAB FT PRN ×2 (01:34→10:46)
[2017-12-01] MEDS: ALBUTEROL 2.5 MG/3 ML NEB SOL NEB SCH ×2 (02:05→08:18)
[2017-12-01 05:10] LABS: Absolute Lymphocytes (CBC) 1.8 K/uL (0.7-4.9); Absolute Monocytes 0.8 K/uL (0.1-1.3); Absolute Neutrophil 4.3 K/uL (1.8-8.0); Basophils % 0.7 % (0-1.3); Eosinophils % 5.8 % (0-4.4); Hematocrit 26.9 % (36.0-45.0); Lymphocytes % 24.3 % (15.3-44.8); MCH 28.8 pg (27.0-35.0); MCV 88.2 fL (80-100); MPV 8.4 fL (7.6-11.3); Monocytes % 11.3 % (3.3-12.3); RBC Red Blood Cell Count 3.05 M/uL (3.86-4.86)
[2017-12-01 05:29] LABS: BUN Blood Urea Nitrogen 18 mg/dL (6-20); Bicarbonate 37 mEq/L (21-31); Glucose Level 82 mg/dL (65-120); Magnesium 1.7 mg/dL (1.8-2.5); Potassium 3.7 mEq/L (3.6-5.0); Sodium Level 135 mEq/L (135-145)
[2017-12-01] MEDS: INSULIN -REGULAR HUMAN 50 UNIT/0.5 ML ML SQ SCH ×2 (06:00)
[2017-12-01] MEDS ORDERED: MAGNESIUM SULFATE 1 gm IVPB 1 GM/100 ML BAG IV ONE (06:00)
[2017-12-01] MEDS ORDERED: POTASSIUM CL SA 10 MEQ TAB PO ONE (06:00)
[2017-12-01] MEDS: LIOTHYRONINE SOD 5 MCG TAB FT SCH (06:19)
[2017-12-01] MEDS: LEVOTHYROXINE SOD 0.125 MG TAB FT SCH (06:19)
[2017-12-01] MEDS: Pantoprazole (granules) 40 MG/BLIST PACKET FT SCH (09:00)
[2017-12-01 09:15] VITALS: O2SAT 99
[2017-12-01] MEDS: FLUCONAZOLE 100 MG TAB PO SCH (10:45)
[2017-12-01] MEDS: ALPRAZOLAM 0.25 MG TABLET PO SCH (10:45)
[2017-12-01] MEDS: GABAPENTIN 100 MG CAP FT SCH (10:45)
[2017-12-01] MEDS: FOLIC ACID 1 MG TABLET FT SCH (10:45)
[2017-12-01] MEDS: HYDROCODONE/APAP 7.5/325 MG TAB PO PRN (10:45)
[2017-12-01] MEDS: MEMANTINE HCL 10 MG TABLET FT SCH (10:45)
[2017-12-01] MEDS: RIVAROXABAN 10 MG TABLET PO SCH (10:46)
[2017-12-01] MEDS: SPIRONOLACTONE 25 MG TABLET FT SCH (10:46)
[2017-12-01] MEDS: SOD FERRIC GLUC COMPLX/SUCROSE 125 MG in NA CHLORIDE 0.9% 100 ML IV SCH (10:47)
--- NOTE | 2017-12-01 10:49 | P.DS ---
Admission Date: 11/23/17 Discharge Date: 12/01/17 Primary Care Provider: [facility] Disposition: DC HOME/HOME HEALTH CARE Discharge Condition: GOOD Reason for Admission: Pneumonia Consultations: Pulmonary-Dr. Shell GI-Dr. Brink Surgery-Dr. Robert - Problems (1) Aspiration pneumonia Onset Date: 11/24/17 Current Visit: Yes Status: Acute Qualifiers: Aspiration pneumonia type: unspecified Laterality: right Lung location: lower lobe of lung Qualified Code(s): J69.0 - Pneumonitis due to inhalation of food and vomit (2) Sepsis Onset Date: 09/23/15 Current Visit: No Status: Acute Qualifiers: Sepsis type: sepsis due to unspecified organism Qualified Code(s): A41.9 - Sepsis, unspecified organism (3) UTI (urinary tract infection) Onset Date: 01/27/16 Current Visit: No Status: Acute Qualifiers: Urinary tract infection type: acute cystitis Hematuria presence: without hematuria Qualified Code(s): N30.00 - Acute cystitis without hematuria (4) Vomiting Onset Date: 11/24/17 Current Visit: No Status: Acute Qualifiers: Vomiting type: unspecified Vomiting Intractability: unspecified Nausea presence: with nausea Qualified Code(s): R11.2 - Nausea with vomiting, unspecified (5) Chronic diastolic (congestive) heart failure Onset Date: 07/28/17 Current Visit: No Status: Chronic (6) Chronic obstructive lung disease COPD Onset Date: 12/18/15 Current Visit: No Status: Chronic (7) Dementia Onset Date: 10/10/15 Current Visit: No Status: Chronic Qualifiers: Dementia type: Parkinson's disease Dementia behavioral disturbance: without behavioral disturbance Qualified Code(s): G20 - Parkinson's disease; F02.80 - Dementia in other diseases classified elsewhere without behavioral disturbance (8) HTN (hypertension) Onset Date: 10/10/15 Current Visit: No Status: Chronic Qualifiers: Hypertension type: essential hypertension Qualified Code(s): I10 - Essential (primary) hypertension (9) History of CVA with residual deficit Onset Date: 10/10/15 Current Visit: No Status: Chronic (10) History of pacemaker Current Visit: No Status: Chronic (11) Hypothyroidism Onset Date: 07/28/17 Current Visit: No Status: Chronic Qualifiers: Hypothyroidism type: postoperative Qualified Code(s): E89.0 - Postprocedural hypothyroidism (12) Malfunction of percutaneous endoscopic gastrostomy (PEG) tube Onset Date: 07/28/17 Current Visit: No Status: Acute (13) Anemia Onset Date: 12/23/15 Current Visit: No Status: Acute Qualifiers: Anemia type: other cause Other causes of anemia: chronic disease, other Qualified Code(s): D63.8 - Anemia in other chronic diseases classified elsewhere (14) Hx of deep venous thrombosis Current Visit: Yes Status: Chronic (15) Chronic anticoagulation Onset Date: 10/10/15 Current Visit: No Status: Chronic Brief History of Present Illness: 82-year-old female with multiple medical problems came to the emergency room for fatigue, nausea and vomiting. Patient found to have aspiration pneumonia. Patient also had some dysfunction with her PEG tube. Patient was hypotensive and sepsis noted. Patient admitted to ICU Hospital Course: During the course of her stay the patient was treated for aspiration pneumonia with underlying diastolic CHF. Patient evaluated by pulmonology. Her condition improved. At 1 point the family requested the patient be transferred to long-term acute care facility placement. This was denied. Family also wanted transfer to [facility]. This is will also denied. Patient is had multiple bronchoscopies in the past at the [facility] facility for she was at prior. Medical records have been requested. At discharge she is on a nasal cannula. She has home oxygen. Case discussed at length with pulmonology. Blood cultures so far negative. Pulmonology recommends to continue with antibiotic treatment-Augmentin for 7 days. Patient also on Diflucan for 7 days for yeast infection. Patient will need a follow up with her cryogenic transport driver at [facility] to follow up this hospitalization and continue her care. Patient also presented with possible PEG tube dysfunction. Patient evaluated by GI. Patient and family were offered to replace PEG tube. Family refused. PEG tube working at this time. This can be followed up by GI as an outpatient. Patient with history of CVA with left-sided weakness. This remained stable. Patient will continue with her medications. Patient with CHF, diastolic dysfunction. Patient will continue with a 1500 cc per day fluid restriction. Patient will continue with her medication-Aldactone 25 mg daily. Patient has GERD. Patient continue with Prilosec daily. Patient with anemia. Patient required transfusion during her stay. Patient with iron and B12 deficiency. Patient will be started on iron 325 mg 1 pill twice daily and B12 vitamin 1000 mcg daily. Recommendation is to recheck CBC in 1 week to monitor progress. Patient with hypothyroidism. Patient will continue with Levoxyl 125 mcg and Cytomel 5 mcg daily. Further adjustment can be done by her bank examiner. Patient with history of dementia. Patient will continue with Namenda 10 mg 1 pill twice daily. Patient was taking blood pressure medication upon admission. This has been discontinued his blood pressures remain stable without the use of carvedilol. This has been discontinued. Blood pressure can be monitored. Further adjustment can be done by her PCP. Patient is taking chronic anti coagulation therapy Xarelto 10 mg daily. This can be continued. Patient with history of DVT in the past. Patient taking baclofen as needed for spasm. This can be use as needed. Recommendation to limit medication. Patient with low magnesium. Patient will continue with magnesium 400 mg 1 pill daily. Vital Signs/Physical Exam: Temp Pulse Resp BP Pulse Ox 97.7 F 78 16 109/55 L 100 12/01/17 08:00 12/01/17 08:00 12/01/17 08:00 12/01/17 08:00 12/01/17 08:00 General: Alert, In no apparent distress, Cooperative HEENT: Atraumatic Neck: Supple Respiratory: Clear to auscultation bilaterally, Normal air movement Cardiovascular: Normal pulses, Regular rate/rhythm Gastrointestinal: Normal bowel sounds, Soft and benign, Non-distended, Other ( PEG tube in place.) Musculoskeletal: No erythema, No tenderness, No warmth Neurological: Normal speech, Normal affect, Abnormal strength (Decreased strength to the left side) Laboratory Data at Discharge: WBC 7.5 K/uL (4.3-10.9) 12/01/17 04:36 Hgb 8.8 g/dL (12.0-15.0) L 12/01/17 04:36 Hct 26.9 % (36.0-45.0) L 12/01/17 04:36 Plt Count 175 K/uL (152-406) D 12/01/17 04:36 PT 13.5 SECONDS (9.5-12.5) H 11/23/17 12:30 INR 1.14 11/23/17 12:30 APTT 34.8 SECONDS (24.3-36.9) 11/23/17 12:30 Sodium 135 mEq/L (135-145) 12/01/17 04:36 Potassium 3.7 mEq/L (3.6-5.0) 12/01/17 04:36 BUN 18 mg/dL (6-20) 12/01/17 04:36 Creatinine 0.35 mg/dL (0.44-1.00) L 12/01/17 04:36 Glucose 82 mg/dL (65-120) 12/01/17 04:36 Phosphorus 2.8 mg/dL (2.5-4.3) 11/30/17 04:25 Magnesium 1.7 mg/dL (1.8-2.5) L 12/01/17 04:36 Total Bilirubin 0.2 mg/dL (0.3-1.2) L 11/30/17 04:25 AST 18 IU/L (10-42) 11/30/17 04:25 ALT 12 IU/L (10-60) 11/30/17 04:25 Alkaline Phosphatase 40 IU/L (42-121) L 11/30/17 04:25 B-Natriuretic Peptide 464 pg/ml (<=100) H 11/23/17 12:30 Home Medications: Memantine HCl [Namenda*] 10 mg FT BID 04/17/14 Gabapentin [Neurontin] 100 mg FT TID 12/18/15 Ondansetron HCl [Zofran] 4 mg FT Q8H PRN 12/18/15 Alprazolam [Xanax*] 0.25 mg FT BID 10/26/16 Hydrocodone 10/APAP 325 [[place] 10/325*] 10 mg FT Q6H PRN 10/26/16 Spironolactone [Aldactone*] 25 mg FT DAILY 10/26/16 Levothyroxine Sodium 125 mcg FT DAILY 07/28/17 Liothyronine Sodium [Cytomel] 5 mcg FT DAILY 07/28/17 Simvastatin 20 mg FT BEDTIME 07/28/17 Acetazolamide [Diamox*] 250 mg PO Q12H PRN 11/23/17 Calcium Acetate 667 mg PO TID 11/23/17 Ergocalciferol (Vitamin D2) [Vitamin D2] 50,000 unit PO DAILY 11/23/17 Folic Acid 1 mg PO DAILY 11/23/17 Magnesium Oxide [Magnesium] 400 mg PO DAILY 11/23/17 Omeprazole 20 mg PO DAILY 11/23/17 Rivaroxaban [Xarelto*] 10 mg PO DAILY 11/23/17 Albuterol Sulfate [Albuterol Sulfate 0.083% Neb Soln] 2.5 mg IH TID PRN #90 ml 12/01/17 Amoxicillin/Potassium Clav [Augmentin 500-125 Tablet] 1 each PO BID #14 tablet 12/01/17 Arformoterol Tartrate [Brovana] 15 mcg NEB BIDRESP #60 vial.neb 12/01/17 Baclofen [Lioresal*] 10 mg FT QID PRN tab 12/01/17 Cyanocobalamin (Vitamin B-12) [B-12] 1,000 mcg PO DAILY #90 tablet 12/01/17 Ferrous Sulfate [Iron] 325 mg PO BID #60 tablet 12/01/17 Fluconazole [Diflucan] 100 mg PO DAILY #7 tablet 12/01/17 New Medications: Albuterol Sulfate [Albuterol Sulfate 0.083% Neb Soln] 2.5 mg IH TID PRN #90 ml PRN Reason: Shortness Of Breath Amoxicillin/Potassium Clav [Augmentin 500-125 Tablet] 1 each PO BID #14 tablet Arformoterol Tartrate [Brovana] 15 mcg NEB BIDRESP #60 vial.neb Cyanocobalamin (Vitamin B-12) [B-12] 1,000 mcg PO DAILY #90 tablet Ferrous Sulfate [Iron] 325 mg PO BID #60 tablet Fluconazole [Diflucan] 100 mg PO DAILY #7 tablet Patient Discharge Instructions: 1. Patient will need a follow up with her PCP in [place] in 1 week to follow up this hospitalization. Patient has multiple specialists at [facility]. She will need to follow up with her specialty care. Patient will continue with home health, physical therapy, PEG tube feeds and continue caregiver services. 2. Patient presented with and treated for sepsis related to aspiration pneumonia with underlying diastolic CHF and COPD. Patient evaluated by pulmonology. Her condition improved during the course of her stay. Patient has had multiple bronchoscopies in the past at the long-term acute care facility for she was at [facility]. Medical records have been requested. At discharge she is on a nasal cannula. She has home oxygen. Pulmonology recommends to continue with antibiotic treatment-Augmentin for 7 days. Patient also on Diflucan for 7 days for yeast infection. Patient will need a follow up with her cryogenic transport driver at [facility] to follow up this hospitalization and continue her care. 3. Patient also presented with possible PEG tube dysfunction. Patient evaluated by GI. Patient and family were offered to replace PEG tube. Family refused. PEG tube working at this time. This can be followed up by GI as an outpatient. Patient will continue with PEG feeds. 4. Patient with history of CVA with left-sided weakness. This remained stable. Patient will continue with her medications. 5. Patient with CHF, diastolic dysfunction. Patient will continue with a 1500 cc per day fluid restriction. Patient will continue with her medication-Aldactone 25 mg daily. 6. Patient has GERD. Patient continue with Prilosec daily. 7. Patient with anemia. Patient required transfusion during her stay. Patient with iron and B12 deficiency. Patient will be started on iron 325 mg 1 pill twice daily and B12 vitamin 1000 mcg daily. Recommendation is to recheck CBC in 1 week to monitor progress. Patient may require future outpatient transfusion if needed. This can be further addressed by her PCP. 8. Patient with hypothyroidism. Patient will continue with Levoxyl 125 mcg and Cytomel 5 mcg daily. Further adjustment can be done by her bank examiner. 9. Patient with history of dementia. Patient will continue with Namenda 10 mg 1 pill twice daily. 10. Patient was taking blood pressure medication upon admission. This has been discontinued his blood pressures remain stable without the use of carvedilol. This has been discontinued. Blood pressure can be monitored. Further adjustment can be done by her PCP. 11. Patient is taking chronic anti coagulation therapy Xarelto 10 mg daily. This can be continued. Patient with history of DVT in the past. 12. Patient taking baclofen as needed for spasm. This can be use as needed. Recommendation to limit medication. 13. Patient with low magnesium. Patient will continue with magnesium 400 mg 1 pill daily. Diet: Peg tube feeds as previous Activity: Fall precautions Time spent managing pt's care (in minutes): 55
[2017-12-01 13:02] VITALS: BP 120/61; TEMP 98.1
== END 2017-12-01 12:59 | disposition home health service (06) | DRG 871 ==
LOC: ER 10:37 → ERHOLD 13:33 → 3RD-ICU 16:34 → 2ND 11-25 14:50
PROVIDERS: ADMIT Family Medicine; ATTEND Family Medicine
PROC: 0T9B70Z Drainage of Bladder with Drainage Device, Via Natural or Artificial Opening (ICD-10-PCS; principal; 2017-11-23)
DX: A41.9 Sepsis, unspecified organism (principal); J18.9 Pneumonia, unspecified organism; I50.33 Acute on chronic diastolic (congestive) heart failure; J69.0 Pneumonitis due to inhalation of food and vomit; R65.21 Severe sepsis with septic shock; I69.354 Hemiplegia and hemiparesis following cerebral infarction affecting left non-dominant side; N30.00 Acute cystitis without hematuria; K94.23 Gastrostomy malfunction; E78.2 Mixed hyperlipidemia; E87.6 Hypokalemia; E89.0 Postprocedural hypothyroidism; D64.9 Anemia, unspecified; E11.9 Type 2 diabetes mellitus without complications; I10 Essential (primary) hypertension; G20 Parkinson's disease; Y83.3 Surgical operation with formation of external stoma as the cause of abnormal reaction of the patient, or of later complication, without mention of misadventure at the time of the procedure; Z86.718 Personal history of other venous thrombosis and embolism; Z85.72 Personal history of non-Hodgkin lymphomas; Z95.0 Presence of cardiac pacemaker
CPT/HCPCS: 36415; 71045; 74177; 80048; 80053; 80069; 80076; 80202; 81003; 82550; 82553; 82607; 82728; 82746; 82962; 83540; 83605; 83735; 83880; 84100; 84132; 84145; 84439; 84443; 84466; 84484; 85014; 85018; 85025; 85044; 85610; 85730; 86850; 86900; 86901; 87040; 87086; 87088; 87102; 93005; 93306; 94640; 94760; 99285; J0692; J1450; J1650; J1940; J2270; J2405; J2916; J3010; J3370; J3475; J7030; P9016; Q9967